=== PATIENT | male | born 1970 | race Caucasian/White ===

== ENCOUNTER 2019-12-07 12:47 | Emergency (ER) | payer BC, SELFPAY ==
[2019-12-07 12:50] VITALS: BP 119/79; PULSE 117; RESP 16; TEMP 38.1; O2SAT 97
--- NOTE | 2019-12-07 13:10 | ED.URI ---
HPI - URI/Sore Throat General Chief Complaint: Upper Respiratory Infection Stated Complaint: cough fever Time Seen by Provider: 12/07/19 13:00 Source: patient, family and RN notes reviewed Mode of arrival: ambulatory Limitations: no limitations History of Present Illness HPI Narrative: 49-year-old male accompanied by presents to express care with complaints of cough, fever, body aches, and headache starting last p.m. He states he has coughed so hard that he has vomited. He states that he does have some nasal drainage that is clear and yellow tinged, denies any sore throat or any ear pain. Patient states that he did not take a flu shot this year. Patient states that he has taken Mucinex and Nyquil for his symptoms. MD elicited complaint: fever and cough Pertinent past history: other (tobacco abuse) Onset (ago): day(s) (1) Consistency: progressively worsening Severity: moderate Pain scale (0-10): 8 Description of mucous: yellow Able to tolerate fluids by mouth: Yes Exacerbating factors: exertion and deep breaths Relieving factors: nothing Associated symptoms: fever, chills, myalgias, headache, rhinorrhea, nasal congestion and cough Treatments prior to arrival: other (Mucinex and Nyquil) Related Data Allergies Allergy/AdvReac Type Severity Reaction Status Date / Time No Known Allergies Allergy Verified 12/07/19 13:12 Review of Systems Review of Systems: Narrative: CONSTITUTIONAL:Positive fever, chills, or sweats. EYES: Denies visual changes, redness, or discharge. ENT: Positive rhinorrhea, congestion,no sore throat, or otalgia. CARDIOVASCULAR: positive chest pain with cough,denies palpitations, or edema. RESPIRATORY:Positive cough denies dyspnea. GASTROINTESTINAL: Denies abdominal pain, nausea, vomiting, or diarrhea. GENITOURINARY: Denies dysuria or hematuria. SKIN: Denies rash or itching. MUSCULOSKELETAL: Denies back pain, joint pain,bodyaches NEUROLOGIC: Denies headache, numbness, or weakness. PSYCHIATRIC: Denies anxiety or depression. All systems reviewed & are unremarkable except as noted in HPI and below PMFSH Past Medical History Medical History (Updated 12/11/19 @ 08:53 by Christine Hagen NP) GERD (gastroesophageal reflux disease) Unspecified injury of femoral artery, right leg, sequela Surgical History Surgical History (Updated 12/07/19 @ 13:56 by Christine Hagen NP) Hx of appendectomy Hx of cholecystectomy Social History Social History (Updated 12/07/19 @ 13:55 by Christine Hagen NP) Smoking packs per day: 1 Smoking cigarettes per day: 20.0 Years smoked: 20 Smoking pack-years: 20.00 Smoking status: Current every day smoker Living arrangements: with family Additional occupation/education comments: [email or web address] Gender identity (if verbalized by the patient): Male Comments At time of signature, agree with nursing past medical, social history. There is no relevant family history pertinent to the presenting complaint Exam Const: General: cooperative, alert, awake, Physically active and ill appearing Nutritional Appearance: average body habitus Orientation/consciousness: oriented to person, oriented to place and oriented to time Limitations: no limitations HENMT: Head: normal to inspection, atraumatic and other (headache stated) Ears: hearing grossly normal bilaterally, external ears normal and TM's normal bilaterally General nose exam: Normal external nose present, Abnormal mucous membranes and turbinates present erythematous and Nasal discharge present Face and sinus: sinuses nontender, erythema and edema Mouth: Yes Normal oral and palatal mucosa present, Yes lip normal and Yes tongue normal Teeth and gingiva: dentition normal Throat: uvula midline and postnasal drainage Eyes: General: appearance normal, both eyes and all related structures Visual Apple: normal visual apple by confrontation Alignment and Position: alignment normal Eyelids: eyelids normal Conjunctiv
== END 2019-12-07 13:29 | disposition home or self-care (01) ==
PROVIDERS: Emergency Provider Registered Nurse
DX: J10.1 Influenza due to other identified influenza virus with other respiratory manifestations (principal); F17.210 Nicotine dependence, cigarettes, uncomplicated; K21.9 Gastro-esophageal reflux disease without esophagitis
CPT/HCPCS: 87804; 99213; G0463

== ENCOUNTER 2021-06-21 10:41 | Emergency (ER) | payer BC, SELFPAY ==
[2021-06-21 10:48] VITALS: BP 134/94; PULSE 88; RESP 18; TEMP 36.4; O2SAT 100
[2021-06-21 12:00] LABS: Alanine Aminotransferase 29 U/L (4-50); Albumin Level 4.4 g/dL (3.5-5.1); Alkaline Phosphatase 101 U/L (38-126); Anion Gap 8 mmol/L (8-16); Aspartate Amino Transferase 28 U/L (17-59); Bilirubin,Total 1.3 mg/dL (0.2-1.3); Blood Urea Nitrogen 9 mg/dL (9-20); Carbon Dioxide 27 mmol/L (22-30); Chloride 104 mmol/L (98-107); Estimated CRCL calculation 82 ml/min; Estimated Glomerular Filt Rate > 60; Glucose 93 mg/dL (65-110); Lipase 18 U/L (23-300); Potassium 3.5 mmol/L (3.4-5.0); Sodium 139 mmol/L (137-145)
[2021-06-21] MEDS: LACTATED RINGERS 1,000 ML 999 ML IV CONT (12:10)
[2021-06-21] MEDS: DICYCLOMINE HCL INJ 20 MG/2 ML VIAL IM (12:10)
--- NOTE | 2021-06-21 12:20 | ED.NAVMDI ---
HPI - Nausea/Vomiting/Diarrhea General Chief complaint: Abdominal Pain Stated complaint: stomach problems Time Seen by Provider: 06/21/21 11:01 Source: patient and RN notes reviewed Mode of arrival: ambulatory Limitations: no limitations History of Present Illness HPI Narrative: This is 50 year old male who presents for evaluation of diarrhea. Patient states he developed watery nonbloody diarrhea 12 days when he was in [place]. He denies associated fever or vomiting. He reports multiple episodes of diarrhea, and it is exacerbated by eating. He also reports abdominal cramping when he eats. He was evaluated at [facility] 3 days ago for his symptoms. He had labs and CT abdomen and pelvis that were performed. His labs were normal and CT showed enteritis according to ER note from his visit. He states he came to this ER because he is still having diarrhea and his family was worried about covid. Related Data Allergies Allergy/AdvReac Type Severity Reaction Status Date / Time No Known Allergies Allergy Verified 06/21/21 10:58 Review of Systems Review of Systems: All systems reviewed & are unremarkable except as noted in HPI and below PMFSH Past Medical History Medical History GERD (gastroesophageal reflux disease) Unspecified injury of femoral artery, right leg, sequela Surgical History Surgical History Hx of appendectomy Hx of cholecystectomy Social History Social History (Updated 12/07/19 @ 13:55 by Christine Hagen NP) Smoking packs per day: 1 Smoking cigarettes per day: 20.0 Years smoked: 20 Smoking pack-years: 20.00 Smoking status: Current every day smoker Additional occupation/education comments: [employer] Gender identity (if verbalized by the patient): Male Exam Const: General: no acute distress and alert Orientation/consciousness: patient oriented x3 Eyes: EOM: EOMs intact bilaterally Chest: Chest palpation & inspection: normal inspection of the chest Resp: Effort & Inspection: normal respiratory effort and no retractions Auscultation: clear to auscultation bilaterally Cardio: Rate: regular rate Rhythm: regular rhythm Heart sounds: no murmurs GI: GI Palp: Yes Soft to palpation, Yes Tenderness to palpation present (GI) (Diffuse) and No Guarding due to palpation present (GI) Auscultation: normal bowel sounds Skin: General skin exam: normal color Rashes: no rashes Neuro: General: patient oriented x3, moves all extremities and CN's II-XI intact bilaterally Psych: Mental Status: mental status grossly normal Affect: normal affect Course Reevaluation(s) Reevaluation #1: Patient denies any pain. I discussed labs are normal. HE was given IVF. I reviewed that since he has no fever , leukocytosis, bloody stools no antibiotics. THis is likely viral. We discussed covid testing and he declines at this time Date: 06/21/21 Time: 14:02 Vital Signs Vital signs: Vital Signs Temperature 97.6 F 06/21/21 10:48 Pulse Rate 88 06/21/21 10:48 Respiratory Rate 18 06/21/21 10:48 Blood Pressure 134/94 H 06/21/21 10:48 Pulse Oximetry 100 06/21/21 10:48 Temperature 97.6 F 06/21/21 10:48 Pulse Rate 88 06/21/21 14:18 Respiratory Rate 17 06/21/21 14:18 Blood Pressure 141/88 H 06/21/21 14:18 Pulse Oximetry 98 06/21/21 14:18 MDM - Nausea/Vomiting/Diarrhea Lab Data Attestation: I reviewed the patient's lab results. Result diagrams: 06/21/21 11:25 06/21/21 11:25 Labs: Lab Results 06/21/21 06/21/21 06/21/21 Range/Units 11:25 11:25 12:00 WBC 7.4 (4.5-10.0) K/mm3 RBC 4.77 (4.6-6.20) M/mm3 Hgb 15.6 (14.0-18.0) g/dL Hct 44.8 (42.0-52.0) % MCV 93.9 (80-100) fl MCH 32.7 (26-34) pg MCHC 34.8 (32-36) g/dl RDW 13.2 (11.5-14.5) % Plt Count 264 (150-375) k/mm3 M
[2021-06-21 12:49] LABS: Add Urine Microscopic? YES; Appearance Urine Clear (Clear); Bilirubin Urine 1+ (Negative); Blood Urine 1+ (Negative); Color Urine Amber (Yellow); Glucose Urine UA Negative (Negative); Ketones Urine Negative (Negative); Leukocyte Esterase Ur Negative LEU/UL (Negative); Mucus Urine Moderate /lpf; Nitrate Urine Negative (Negative); Protein Urine 1+ mg/dL (Negative); Specific Grav Ur 1.029 (1.001-1.035); Squamous Epithelial Cell Urine Rare /hpf (Few); Urobilinogen Urine Negative mg/dL (<2.0); WBC Urine 0-3 /hpf
[2021-06-21 13:02] VITALS: BP 119/72; PULSE 73
[2021-06-21 13:04] VITALS: BP 117/86; PULSE 89
[2021-06-21 13:06] VITALS: BP 117/94; PULSE 100
[2021-06-21 13:46] LABS: Basophils Absolute Auto 0.1 K/mm3 (0.0-0.1); Basophils Percent Auto 0.7 % (0.2-1.2); Eosinophils Absolute Auto 0.2 K/mm3 (0-0.3); Eosinophils Percent Auto 2.7 % (0-4.4); Hematocrit 44.8 % (42.0-52.0); Hemoglobin 15.6 g/dL (14.0-18.0); Immature Granulocyte Absolute 0.03 K/mm3 (0.00-0.031); Immature Granulocyte Percent A 0.4 % (0-0.5); Lymphocytes Absolute Auto 1.14 K/mm3 (0.9-3.2); Lymphocytes Percent Auto 15.4 % (18.3-44.2); Mean Corpuscular HGB Conc 34.8 g/dl (32-36); Mean Corpuscular Hemoglobin 32.7 pg (26-34); Mean Corpuscular Volume 93.9 fl (80-100); Mean Platelet Volume 9.6 fl (7.4-10.4); Monocytes Absolute Auto 0.6 K/mm3 (0.1-0.6); Monocytes Percent Auto 8.1 % (2.6-8.5); Neutrophils Absolute Auto 5.4 K/mm3 (1.3-6.7); Neutrophils Percent Auto 72.7 % (45.5-73.1); Platelet Count Result 264 k/mm3 (150-375); Red Blood Count 4.77 M/mm3 (4.6-6.20); Red Cell Distribution Width 13.2 % (11.5-14.5); White Blood Count 7.4 K/mm3 (4.5-10.0)
[2021-06-21 14:18] VITALS: BP 141/88; PULSE 88; RESP 17; O2SAT 98
== END 2021-06-21 14:18 | disposition home or self-care (01) ==
PROVIDERS: Emergency Provider General Practice
DX: R19.7 Diarrhea, unspecified (principal); K21.9 Gastro-esophageal reflux disease without esophagitis; F17.210 Nicotine dependence, cigarettes, uncomplicated
CPT/HCPCS: 36415; 80053; 81001; 83690; 85025; 96372; 99283; J0500; J7120

== ENCOUNTER 2021-06-23 14:46 | Outpatient (CLI) | payer BC, SELFPAY ==
[2021-06-23 20:48] LABS: Erythrocyte Sedimentation Rate 7 mm/hr (0-20)
[2021-06-23 21:05] LABS: CRP 1.4 mg/dL (<1.0)
[2021-06-29 13:25] LABS: Tissue Transglutaminase IgA Ab 1 U/mL (<4)
[2021-06-29 22:02] LABS: Calprotectin, Stool 439 mcg/g
== END 2021-06-23 14:47 | disposition home or self-care (01) ==
PROVIDERS: PCP Family Medicine; Visit Provider Family Medicine
DX: K52.9 Noninfective gastroenteritis and colitis, unspecified (principal)
CPT/HCPCS: 36415; 83516; 83993; 84443; 85652; 86140; 87015; 87269; 87272; 89055

== ENCOUNTER 2021-06-24 14:04 | Observation (INO) | payer BC, SELFPAY ==
--- NOTE | ~2021-06-24 | CT_ITS ---
EXAMINATION: CT abdomen pelvis w con DATE: 06/24/2021 19:55 INDICATION: Abdominal pain and diarrhea. TECHNIQUE: Computed tomography (CT) of the abdomen and pelvis was performed with 100 mL Omnipaque 350 intravenous contrast. Automated exposure control and iterative reconstruction technique were employe d. The dose-length product was 646.41 mGy-cm. COMPARISON: None. FINDINGS: The visualized portions of the lung bases are clear without pneumonia or pleural effusion. The heart size is normal. No pericardial effusion. There are cysts in the liver measuring up to 3.6 c m. There are changes of cholecystectomy. Calcifications in the spleen are consistent with old granulo matous disease. The pancreas and adrenal glands are normal. There are cysts in the kidneys measuring up to 5.7 cm on the right. There is liquid stool in the colon correlating with the symptom of diarrhe a. The appendix is not visualized. There are no dilated loops of bowel. There are no pathologically e nlarged lymph nodes. There is no free intraperitoneal fluid. There is mild thoracolumbar spondylosis. IMPRESSION: 1. No etiology for the patient's symptoms. Reviewed, dictated and finalized at location A.
[2021-06-24 14:31] VITALS: BP 144/87; PULSE 99; RESP 18; TEMP 36.8; O2SAT 99
[2021-06-24 15:02] LABS: Basophils Absolute Auto 0.1 K/mm3 (0.0-0.1); Basophils Percent Auto 0.6 % (0.2-1.2); Eosinophils Absolute Auto 0.2 K/mm3 (0-0.3); Eosinophils Percent Auto 2.1 % (0-4.4); Hematocrit 46.8 % (42.0-52.0); Hemoglobin 16.6 g/dL (14.0-18.0); Immature Granulocyte Absolute 0.04 K/mm3 (0.00-0.031); Immature Granulocyte Percent A 0.4 % (0-0.5); Lymphocytes Absolute Auto 1.58 K/mm3 (0.9-3.2); Lymphocytes Percent Auto 14.3 % (18.3-44.2); Mean Corpuscular HGB Conc 35.5 g/dl (32-36); Mean Corpuscular Hemoglobin 31.9 pg (26-34); Mean Platelet Volume 9.1 fl (7.4-10.4); Monocytes Absolute Auto 0.8 K/mm3 (0.1-0.6); Monocytes Percent Auto 7.3 % (2.6-8.5); Neutrophils Absolute Auto 8.3 K/mm3 (1.3-6.7); Neutrophils Percent Auto 75.3 % (45.5-73.1); Platelet Count Result 345 k/mm3 (150-375); Red Cell Distribution Width 12.9 % (11.5-14.5)
[2021-06-24 15:22] LABS: Alanine Aminotransferase 24 U/L (4-50); Albumin Level 4.7 g/dL (3.5-5.1); Alkaline Phosphatase 108 U/L (38-126); Anion Gap 12 mmol/L (8-16); Aspartate Amino Transferase 28 U/L (17-59); Bilirubin,Total 1.5 mg/dL (0.2-1.3); Blood Urea Nitrogen 13 mg/dL (9-20); Calcium 9.3 mg/dL (8.4-10.2); Carbon Dioxide 24 mmol/L (22-30); Chloride 97 mmol/L (98-107); Estimated CRCL calculation 76 ml/min; Estimated Glomerular Filt Rate > 60; Glucose 92 mg/dL (65-110); Lipase 16 U/L (23-300); Potassium 3.6 mmol/L (3.4-5.0); Sodium 133 mmol/L (137-145)
[2021-06-24 17:14] VITALS: BP 113/80; PULSE 103; TEMP 36.2; O2SAT 98
[2021-06-24 19:17] VITALS: BP 129/87; PULSE 98; RESP 18; O2SAT 99
--- NOTE | 2021-06-24 19:29 | ED.GENADULT ---
HPI - General Adult General Chief complaint: Abdominal Pain Stated complaint: diarrhea Time Seen by Provider: 06/24/21 19:15 Source: patient History of Present Illness HPI narrative: Patient is a 50 y/o male complaining generalized abdominal pain for 2 weeks. His pain is worse in lower abdomen. He describes his pain as cramping and rates it as 8-10/10. There is no alleviating or exacerbating factor. He has been having diarrhea, but no vomiting. He was evaluated here and at OSH recently for this. He states that he was seen by Dr. Fritz today who directed him to come to ED for IV hydration and admission. Related Data Home Medications Medication Instructions Recorded Confirmed diphenoxylate-atropine tablet 06/24/21 Allergies Allergy/AdvReac Type Severity Reaction Status Date / Time No Known Allergies Allergy Verified 06/24/21 19:23 Review of Systems Constitutional: Constitutional: Denies chills, Denies fever(s), Denies headache(s) and Denies weakness Eyes: Eyes: Denies blurry vision ENT: Denies headache(s) and Denies neck pain Cardiovascular: Cardiovascular: Denies chest pain and Denies dyspnea Respiratory: Respiratory: Denies cough and Denies dyspnea Gastrointestinal: Gastrointestinal: Reports abdominal pain, Reports diarrhea, Denies nausea and Denies vomiting Genitourinary: Genitourinary: Denies hematuria and Denies dysuria Musculoskeletal: Musculoskeletal: Denies back pain and Denies neck pain Neurologic: Denies headache(s) and Denies weakness PMFSH Past Medical History Medical History GERD (gastroesophageal reflux disease) Unspecified injury of femoral artery, right leg, sequela Surgical History Surgical History Hx of appendectomy Hx of cholecystectomy Social History Social History Smoking packs per day: 1 Smoking cigarettes per day: 20.0 Years smoked: 20 Smoking pack-years: 20.00 Smoking status: Current every day smoker Additional occupation/education comments: [employer] Gender identity (if verbalized by the patient): Male Exam Const: General: no acute distress and well developed Orientation/consciousness: oriented to person, oriented to place, oriented to time and patient oriented x3 HENMT: Head: normocephalic Ears: external ears normal General nose exam: Normal external nose present Eyes: General: appearance normal, both eyes and all related structures Conjunctivae: conjunctivae normal Neck: Neck: normal visual inspection and full ROM Chest: Chest palpation & inspection: normal inspection of the chest and no tenderness Resp: Effort & Inspection: normal respiratory effort Auscultation: clear to auscultation bilaterally Cardio: Rate: regular rate Rhythm: regular rhythm GI: GI Palp: No abdominal tenderness and Yes Soft to palpation Skin: General skin exam: normal color and turgor normal Neuro: General: oriented to person, oriented to place, oriented to time and patient oriented x3 Cognition (Neuro): normal cognition Extrem: General: normal to inspection, full ROM and no pedal edema Psych: Appearance: grossly normal Mental Status: mental status grossly normal Affect: normal affect Course Consultations Consultation #1: Discussed with Dr. Fritz, who recommends admission for observation and he will consult. He also recommends COVID test and no need for repeat CT. However, it appears that CT is already done. Date: 06/24/21 Time: 19:35 Consultation #2: Discussed with Dr. Ramírez, who agrees to admit. Date: 06/24/21 Time: 19:56 Vital Signs Vital signs: Vital Signs Temperature 36.8 C 06/24/21 14:31 Pulse Rate 99 06/24/21 14:31 Respiratory Rate 18 06/24/21 14:31 Blood Pressure 144/87 H 06/24/21 14:31 Pulse Oximetry 99 06/24/21 14:31 Temperature 36.2 C L 06/24/21 17:14 Pulse Rate
[2021-06-24] MEDS: SODIUM CHLORIDE 0.9% IV 1,000 ML 999 ML IV CONT (19:39)
[2021-06-24 20:45] LABS: EDCOVIDSCREEN Negative (Negative)
[2021-06-24 21:15] VITALS: BP 128/89; PULSE 87; RESP 16; TEMP 36.8; O2SAT 100
[2021-06-24 21:26] VITALS: BMI 26.7
--- NOTE | 2021-06-24 21:30 | ADMGEN ---
This patient, Ko Roberts, was admitted to [facility]. Patient/family oriented to hospital policies and general routines including ID bracelet, bed and alarms, visiting hours, pain management, procedures, bathroom and other care routines, personal items, smoking policy, room service/diet, and visiting hours. Information on how to activate the Rapid Response Team has been discussed. Patient/Family are encouraged to report perceived risks to care and to ask questions if they do not understand what they are told or what they should do.
[2021-06-25] VITALS (7 sets, daily range): BP systolic 95–122; BP diastolic 58–81; PULSE 63–79; RESP 12–26; TEMP 36.4–36.8; O2SAT 95–100; BMI 26.7
--- NOTE | 2021-06-25 00:07 | PM.IMHP ---
H&P: HPI History of Present Illness Date/Time: 06/25/21 00:07 Chief Complaint: Diarrhea Narrative: This is a 50-year-old male with past medical history significant for tobacco use, tobacco chewing. Patient came to the emergency room due to diarrhea now for roughly 2-3 weeks weight loss of 10-15 lb had a trip to [facility] that 2-3 weeks ago and has had diarrhea ever since unable to eat as everything goes through him he was in the emergency department 2 days ago he was given some medication and discharged home but returned today due to intractable diarrhea he has had roughly 7 bowel movements daily of profuse watery diarrhea some abdominal discomfort, no nausea no vomiting, no phlegm no blood in the diarrhea, no fevers no rigors no chills, no cough no sputum production no shortness of breath. CT of abdomen and pelvis has been unrevealing. Patient has been placed in observation. Review of Systems Review of Systems: Watery diarrhea for 2-3 weeks weight loss of roughly 10-15 lb Constitutional: Constitutional: Denies chills, Denies fatigue, Denies fever(s), Denies malaise, Reports poor appetite, Denies weakness and Reports weight loss Eyes: Eyes: Denies change in vision ENT: Denies dysphagia, Denies nasal congestion, Denies nasal discharge, Denies nasal obstruction and Denies odynophagia Cardiovascular: Cardiovascular: Denies chest pain, Denies lightheadedness and Denies palpitations Respiratory: Respiratory: Denies chest congestion, Denies dyspnea and Denies wheezing Gastrointestinal: Gastrointestinal: Denies dyspepsia, Denies heartburn, Reports diarrhea, Denies nausea and Denies vomiting Genitourinary: Genitourinary: Reports no additional male genitourinary complaints Musculoskeletal: Musculoskeletal: Reports no additional musculoskeletal complaints Integumentary/Breasts: Skin/Breast: Reports system reviewed and no additional complaints, except as docu Neurologic: Reports system reviewed and no additional complaints, except as documented Psychiatric: Psychiatric: Reports no additional psychiatric complaints Endocrine: Endocrine: Reports no additional endocrine complaints Hematologic/Lymphatic: Hematologic/Lymphatic: Reports no additional hematologic/lymphatic complaints Allergic/Immunologic: Allergic/Immunologic: Reports no additional allergic/immunologic complaints PMFSH Past Medical History Medical History GERD (gastroesophageal reflux disease) Unspecified injury of femoral artery, right leg, sequela Surgical History Surgical History Hx of appendectomy Hx of cholecystectomy Family History Family History (Updated 06/24/21 @ 21:46 by Candice Orellana RN) Father FH: brain aneurysm Social History Social History Smoking packs per day: 1.5 Smoking cigarettes per day: 30.0 Years smoked: 20 Smoking pack-years: 30.00 Smoking status: Current every day smoker Tobacco type: cigarettes and smokeless tobacco Second hand tobacco smoke exposure: No Alcohol intake: current Drinks per week: 4 Substance use: never Substance use type: does not use Additional occupation/education comments: [employer] Gender identity (if verbalized by the patient): Male Spiritual care concerns: No Meds Home Medications and Allergies Home Medications Medication Instructions Recorded Confirmed Type diphenoxylate-atropine 1 tablet PO TID PRN 06/24/21 06/24/21 History omeprazole 20 mg PO DAILY PRN 06/24/21 06/24/21 History Allergies Allergy/AdvReac Type Severity Reaction Status Date / Time No Known Allergies Allergy Verified 06/24/21 21:42 Vital Signs Vital Signs - 24 hr 06/24/21 14:31 06/24/21 17:14 06/24/21 19:17 Temperature 98.2 F 97.2 F L Pulse Rate 99 103 H 98 Respiratory Rate 18 18 Blood Pressure 144/87 H 113/80 129/87 Pulse
[2021-06-25] MEDS: metroNIDAZOLE 500 MG/ISO 100ML 500 MG/100 ML BAG 100 MG IVPB ×3 (00:47→14:04)
[2021-06-25 06:56] LABS: Anion Gap 10 mmol/L (8-16); Blood Urea Nitrogen 12 mg/dL (9-20); Calcium 8.4 mg/dL (8.4-10.2); Carbon Dioxide 21 mmol/L (22-30); Chloride 101 mmol/L (98-107); Estimated CRCL calculation 111 ml/min; Estimated Glomerular Filt Rate > 60; Glucose 85 mg/dL (65-110); Potassium 3.2 mmol/L (3.4-5.0); Sodium 132 mmol/L (137-145)
--- NOTE | 2021-06-25 07:17 | WPDGICN ---
Assessment and Plan Assessment and plan (1) Acute diarrhea: Code(s): R19.7 - Diarrhea, unspecified Status: Acute Assessment and Plan: stool studies from [place] were all negative. Those that were done here are still pending. Because of persistent symptoms I will schedule him for EGD and colonoscopy to be done later today. He was found have some mild thickening of the small intestines on CT done in [place] (2) Dehydration symptoms: Code(s): R63.8 - Other symptoms and signs concerning food and fluid intake Status: Acute Assessment and Plan: when I saw him yesterday he was feeling weak and tired and attributed it to not having had anything to eat or drink for several days. He states he feels better today after having IV fluids GI Consult Note Consult date/time: 06/25/21 07:17 HPI: Ko Roberts is a 50 year old male who was in [place] on vacation when he developed diarrhea. That was followed by nausea and decrease in appetite. He did not have a fever although at times he felt sweaty. There was no vomiting. He stated that he had most of his diarrhea in the morning and evening. He was not exposed to any unusual water, in other words he did not o near [place]. He has not been on antibiotics. Eyes return here a week ago he went out to dinner and that was the last time he felt like eating. He has had virtually no food since then. Even popsicles do not agree with him. He is finding it difficult to even drink because it it makes him feel bad. He was in the emergency room in [facility] several days ago. Stool cultures were done that were all negative, and CBC was unremarkable. His CT scan showed possible slight thickening of part of the small bowel. Because the symptoms were worse he went to our emergency room at [facility] on June 21. Apparently COVID testing was brought up but he was talked out of it or talk himself out of it when a nurse practitioner told him that it was probably too late, test would not be positive any more and that he has already exposed his family and grandchildren to the virus if he did have it. He therefore went home. A urinalysis shows specific gravity was 1.029. Creatinine was normal. More stool studies were obtained and are pending. after seen him in the office I directed him to go to emergency room for fear of imminent dehydration and because I was concerned that he may have COVID causing these symptoms. He was found have higher creatinine this time, 1.2. He continues to have loose watery greenish stools that look to him like sack sewer water are quite foul smelling. He has had no appetite. Review of Systems Review of Systems: All systems reviewed & are unremarkable except as noted in HPI and below PMFSH Past Medical History Medical History GERD (gastroesophageal reflux disease) Unspecified injury of femoral artery, right leg, sequela Surgical History Surgical History Hx of appendectomy Hx of cholecystectomy Family History Family History Father FH: brain aneurysm Social History Social History Smoking packs per day: 1.5 Smoking cigarettes per day: 30.0 Years smoked: 20 Smoking pack-years: 30.00 Smoking status: Current every day smoker Tobacco type: cigarettes and smokeless tobacco Second hand tobacco smoke exposure: No Alcohol intake: current Drinks per week: 4 Substance use: never Substance use type: does not use Additional occupation/education comments: [employer] Gender identity (if verbalized by the patient): Male Spiritual care concerns: No Meds Home Medications and Allergies Home Medications Medication Instructions Recorded Confirmed Type diphenoxylate-atropine 1 tablet PO TID PRN 05/27
[2021-06-25] MEDS: POTASSIUM CHLORIDE 20 MEQ TABLET PO (08:38)
[2021-06-25] MEDS: MAGNESIUM CITRATE 300 ML BTL PO (08:39)
--- NOTE | 2021-06-25 10:30 | PC.NURSE ---
Pt to GI lab per wheelchair.
[2021-06-25] MEDS: LACTATED RINGERS 1,000 ML 150 ML IV CONT (10:45)
--- NOTE | 2021-06-25 10:55 | WPDANESEPPF ---
Anes - Initial Pre Proc Eval Procedure: Operation Date: 06/25/21 12:15 Proposed Procedures p Esophagogastroduodenoscopy & Colonoscopy - Kwaku Fritz MD Date/Time: 06/25/21 10:55 Surgeon: Sundeep Ramírez MD Pre Op Diagnosis: Gastroenteritis, Dehydration Patient Data Age: 50 Gender: M Height: 1.88 m Weight: 94.5 kg Last Vital Signs Temp 97.5 F L 06/25/21 10:43 Pulse 72 06/25/21 10:43 Resp 16 06/25/21 10:43 BP 120/81 06/25/21 10:43 Pulse Ox 100 06/25/21 10:43 Allergies Allergy/AdvReac Type Severity Reaction Status Date / Time No Known Allergies Allergy Verified 06/25/21 10:41 Home Medications Medication Instructions Recorded Confirmed Type diphenoxylate-atropine 1 tablet PO TID PRN 06/24/21 06/24/21 History omeprazole 20 mg PO DAILY PRN 06/24/21 06/24/21 History Laboratory Tests 06/24/21 06/24/21 06/24/21 14:49 14:49 20:20 WBC 11.0 K/mm3 H K/mm3 (4.5-10.0) RBC 5.20 M/mm3 M/mm3 (4.6-6.20) Hgb 16.6 g/dL g/dL (14.0-18.0) Hct 46.8 % % (42.0-52.0) MCV 90.0 fl fl (80-100) MCH 31.9 pg pg (26-34) MCHC 35.5 g/dl g/dl (32-36) RDW 12.9 % % (11.5-14.5) Plt Count 345 k/mm3 k/mm3 (150-375) MPV 9.1 fl fl (7.4-10.4) Immature Gran % (Auto) 0.4 % % (0-0.5) Neut % (Auto) 75.3 % H % (45.5-73.1) Lymph % (Auto) 14.3 % L % (18.3-44.2) Cascade % (Auto) 7.3 % % (2.6-8.5) Eos % (Auto) 2.1 % % (0-4.4) Baso % (Auto) 0.6 % % (0.2-1.2) Lymph # (Auto) 1.58 K/mm3 K/mm3 (0.9-3.2) Cascade # (Auto) 0.8 K/mm3 H K/mm3 (0.1-0.6) Eos # (Auto) 0.2 K/mm3 K/mm3 (0-0.3) Baso # (Auto) 0.1 K/mm3 K/mm3 (0.0-0.1) Abs Immat Gran (auto) 0.04 K/mm3 H K/mm3 (0.00-0.031) Absolute Neuts (auto) 8.3 K/mm3 H K/mm3 (1.3-6.7) Absolute Nucleated RBC 0.0 K/mm3 K/mm3 (0.0-0.012) Nucleated RBC % 0.0 % % (0.0-0.2) Sodium 133 mmol/L L mmol/L (137-145) Potassium 3.6 mmol/L mmol/L (3.4-5.0) Chloride 97 mmol/L L mmol/L (98-107) Carbon Dioxide 24 mmol/L mmol/L (22-30) Anion Gap 12 mmol/L mmol/L (8-16) BUN 13 mg/dL mg/dL (9-20) Creatinine 1.20 mg/dL mg/dL (0.7-1.3) Estim Creat Clear Calc 76 ml/min ml/min Estimated GFR > 60 (59 - ) Glucose 92 mg/dL mg/dL (65-110) Calcium 9.3 mg/dL mg/dL (8.4-10.2) Total Bilirubin 1.5 mg/dL H mg/dL (0.2-1.3) AST 28 U/L U/L (17-59) ALT 24 U/L U/L (4-50) Alkaline Phosphatase 108 U/L U/L (38-126) Total Protein 8.0 g/dL g/dL (6.3-8.2) Albumin 4.7 g/dL g/dL (3.5-5.1) Lipase 16 U/L L U/L (23-300) SARS-CoV-2 IgG/IgM Ag?Rapid Negative (Negative) Ova & Parasites 06/25/21 06/25/21 02:05 06:16 WBC RBC Hgb Hct MCV MCH MCHC RDW Plt Count MPV Immature Gran % (Auto) Neut % (Auto) Lymph % (Auto) Cascade % (Auto) Eos % (Auto) Baso % (Auto) Lymph # (Auto) Cascade # (Auto) Eos # (Auto) Baso # (Auto) Abs Immat Gran (auto) Absolute Neuts (auto) Absolute Nucleated RBC Nucleated RBC % Sodium 132 mmol/L L mmol/L (137-145) Potassium 3.2 mmol/L L mmol/L (3.4-5.0) Chloride 101 mmol/L mmol/L (98-107) Carbon Dioxide 21 mmol/L L mmol/L (22-30) Anion Gap 10 mmol/L mmol/L (8-16) BUN 12 mg/dL mg/dL (9-20) Creatinine 0.80 mg/dL mg/dL (0.7-1.3) Estim Creat Clear Calc 111 ml/min ml/min Estimated GFR > 60 (59 - ) Glucose 85 mg/
[2021-06-25] MEDS: ENOXAPARIN 40 MG/0.4 ML SYRINGE SUB-Q (14:04)
--- NOTE | 2021-06-25 16:22 | PM.DS ---
DS: Admitting Diagnosis Admitting Diagnosis Diarrhea DS: Discharge Diagnosis Discharge Diagnosis (1) Acute diarrhea: Code(s): R19.7 - Diarrhea, unspecified Status: Acute (2) Dehydration: Code(s): E86.0 - Dehydration Status: Acute (3) Chewing tobacco nicotine dependence, uncomplicated: Code(s): F17.220 - Nicotine dependence, chewing tobacco, uncomplicated Status: Acute (4) Tobacco dependence due to cigarettes: Code(s): F17.210 - Nicotine dependence, cigarettes, uncomplicated Status: Acute DS: Summary Hospital Course Reason for hospitalization: 50yo male here for diarrhea. Please see H&P for details. Hospital Course: Patient presents to ED due to diarrhea now for roughly 2-3 weeks with weight loss of 10-15# after a trip to [place]. No exposure to brackish water. He has been to multiple hospitals for evaluation. CT scan in [place] showed enteritis prior to admission. On admission, patient was hemodynamically stable. White count slightly elevated 11,000. Sodium low 133. CRP was 1.4 with a normal TSH drawn 1 day prior to admission. CT scan of the abdomen pelvis showed liquid stool in the colon but no acute findings. Patient underwent colonoscopy which showed no acute findings. Biopsies were taken. EGD showed nonerosive reflux disease. Patient was started on Levaquin and Flagyl. He states his symptoms improved with this treatment. Was able to eat and tolerate it. Stool study collected on June 23 has returned positive for Giardia. Plan for treatment with Flagyl. Patient was educated about the benefits of abstain from tobacco use. He was advised of the side effects of metronidazole including headache, GI disturbance, metallic taste and reaction with alcohol use. He was advised to avoid alcohol use while on metronidazole. He voices understanding this. Patient did well was able to discharge home on 06/25/2021. Status at Discharge Cognitive/behavioral status at discharge: stable Time Spent with Patient Time attestation: Total time spent providing and/or coordinating discharge services: 35 minutes Time spent: Greater than 30 minutes Specific discharge activities: Patient Education Exam Narrative: AF 97.5 119/77 63 14 100% ra Gen - NARD Chest - CTA bilaterally, nml RR CV - RRR S1/S2 Abd - Soft, NT/ND, Positive BS Ext - No pedal edema Neuro - Alert and oriented. Nonfocal exam. Psych - Nml mood and affect Skin - Warm and dry DS: Data Data Completed and Pending Pending studies at discharge: Pending at discharge 06/25/21 13:13 Surgical [PTH] Routine Surgical [PTH] Routine Labs on day of discharge: Labs from last 24 hours 06/25/21 06/25/21 06/24/21 06:16 02:05 20:20 Sodium 132 L Potassium 3.2 L Chloride 101 Carbon Dioxide 21 L Anion Gap 10 BUN 12 Creatinine 0.80 Estim Creat Clear Calc 111 Estimated GFR > 60 Glucose 85 Calcium 8.4 SARS-CoV-2 IgG/IgM Ag?Rapid Negative Ova & Parasites Pending Discharge Plan Discharge Attending physician on discharge: Mohan Montgomery Consulting providers: Kwaku Fritz Discharging Clinician: Mohan Montgomery Anticipated Discharge Date/Time: 06/25/21 16:52 Patient Disposition: Home, Self-Care Activity: as tolerated Diet: regular Discharge Instructions: Please avoid large gathering, wear face coverings in public and practice social distance. Please complete your antibiotic course even if you are starting to feel well. Contact your doctor or call 911 and come to the Emergency Room if you have worsening diarrhea, rectal bleeding or other worrisome symptoms. Avoid NSAIDs (ibuprofen, naproxen, Aleve). Tylenol is safe to take. Follow-up with Dr Fritz in 1 week. Please call for appointment. Stop all Tobacco product use Patient Instructions: Antibiotic Form, How to Stop Smoking (DC) Stand Alone Forms: General Disch
--- NOTE | 2021-06-25 17:53 | PC.NURSE ---
Pt stated no valuables were locked away.
== END 2021-06-25 17:50 | disposition home or self-care (01) ==
LOC: ANHED 20:55 → ANHCPC 06-25 00:25
PROVIDERS: Emergency Medicine; Internal Medicine Gastroenterology; Admitting Provider Internal Medicine; Emergency Provider Emergency Medicine; PCP Family Medicine; Visit Provider Internal Medicine
PROC: 0DJ08ZZ Inspection of Upper Intestinal Tract, Via Natural or Artificial Opening Endoscopic (ICD-10-PCS; CPT 43235; principal; 2021-06-25 12:15)
DX: A07.1 Giardiasis [lambliasis] (principal); R19.7 Diarrhea, unspecified; K52.89 Other specified noninfective gastroenteritis and colitis; K20.80 Other esophagitis without bleeding; K21.9 Gastro-esophageal reflux disease without esophagitis; E86.0 Dehydration; F17.220 Nicotine dependence, chewing tobacco, uncomplicated; Z20.822 Contact with and (suspected) exposure to COVID-19
CPT/HCPCS: 43239; 45380; 36415; 74177; 80048; 80053; 83690; 85025; 87081; 87177; 87209; 87426; 88305; 89055; 96361; 96365; 96366; 96368; 99285; A9270; C9803; G0378; J1650; J1956; J2704; J7030; J7120; Q9967

== ENCOUNTER 2021-07-14 15:31 | Outpatient (CLI) | payer BC, SELFPAY ==
[2021-07-14 19:54] LABS: Anion Gap 9 mmol/L (8-16); Blood Urea Nitrogen 10 mg/dL (9-20); Calcium 9.1 mg/dL (8.4-10.2); Carbon Dioxide 28 mmol/L (22-30); Chloride 101 mmol/L (98-107); Cholesterol 185 mg/dL (0-200); Estimated Glomerular Filt Rate > 60; Glucose 97 mg/dL (65-110); HDL Direct 41 mg/dL; Potassium 3.8 mmol/L (3.4-5.0); Sodium 138 mmol/L (137-145); Triglycerides 264 mg/dL (<150)
[2021-07-14 20:05] LABS: LDL Cholesterol Direct 99 mg/dL
[2021-07-14 20:18] LABS: Vitamin D 25 Hydroxy 39.5 ng/mL
== END 2021-07-14 15:32 | disposition home or self-care (01) ==
PROVIDERS: PCP Family Medicine; Visit Provider Family Medicine
DX: E87.1 Hypo-osmolality and hyponatremia (principal); E87.6 Hypokalemia; Z00.00 Encounter for general adult medical examination without abnormal findings; K21.9 Gastro-esophageal reflux disease without esophagitis; Z12.5 Encounter for screening for malignant neoplasm of prostate
CPT/HCPCS: 36415; 80048; 80061; 82306; 84153; G0103

== ENCOUNTER 2022-09-08 19:38 | Emergency (ER) | payer BC, SELFPAY ==
--- NOTE | ~2022-09-08 | XR_ITS ---
EXAMINATION: XR finger 5th LT min 2V INDICATION: Right fifth finger pain, initial encounter TECHNIQUE: Three views of the right fifth finger are obtained. COMPARISON: None available FINDINGS: There is soft tissue swelling of the distal finger. Bone alignment is normal. There is no f racture. The joint spaces are unremarkable. IMPRESSION: 1. Left fifth finger swelling without underlying osseous abnormality. Reviewed, dictated and finalized at location F. PRESSER
--- NOTE | 2022-09-08 19:41 | ED.WOUNDLAC ---
HPI - Wound/Laceration General Stated Complaint: Laceration to Finger Time Seen by Provider: 09/08/22 20:03 Source: patient and RN notes reviewed Mode of arrival: ambulatory Limitations: no limitations History of Present Illness HPI narrative: 51-year-old male presents concern for injury to the 5th digit of his left hand. Reports prior to arrival he was using a saw was when he injured his hand. He thinks this also may have smashed his hand. He reports a laceration, bruising, pain in the distal digit. He reports he is up-to-date on his tetanus vaccination Related Data Home Medications Medication Instructions Recorded Confirmed omeprazole 20 mg capsule,delayed 20 mg PO DAILY PRN Acid Reflux 07/10/21 07/21/21 release Allergies Allergy/AdvReac Type Severity Reaction Status Date / Time No Known Allergies Allergy Verified 09/08/22 19:54 Review of Systems Review of Systems: CONSTITUTIONAL: Denies malaise, chills, sweats, or fever. SKIN: Reports laceration to the 5th digit of the left hand MUSCULOSKELETAL: Reports bruising, pain, swelling to the 5th digit of the left hand NEUROLOGIC: Denies numbness, weakness All systems reviewed & are unremarkable except as noted in HPI and below PMFSH Past Medical History Medical History GERD (gastroesophageal reflux disease) Unspecified injury of femoral artery, right leg, sequela Surgical History Surgical History Hx of appendectomy Hx of cholecystectomy Family History Family History Father FH: brain aneurysm Social History Social History Smoking packs per day: 1.5 Smoking cigarettes per day: 30.0 Years smoked: 20 Smoking pack-years: 30.00 Smoking status: Current every day smoker Tobacco type: cigarettes and smokeless tobacco Second hand tobacco smoke exposure: No Alcohol intake: current Drinks per week: 4 Substance use: never Substance use type: does not use Additional occupation/education comments: [employer] Gender identity (if verbalized by the patient): Male Spiritual care concerns: No Comments At time of signature, agree with nursing past medical, surgical, social and family history. There is no relevant family history pertinent to the presenting complaint Exam Narrative: GENERAL: Well-appearing, well-nourished, and in no acute distress. HEAD: Normocephalic EYES: PERRLA, conjunctivae clear NECK: Supple. CHEST: Speaks in full sentences. No respiratory distress. HEART: Regular rate and rhythm. Normal and equal peripheral pulses. EXTREMITIES: 5th digit of the left hand has normal strength and sensation. 5/5 strength with digit flexion, extension. Range of motion grossly normal. No clubbing, cyanosis. Distal digit tenderness, ecchymosis and edema noted. No tenderness. Normal digital cascade with flexion of fingers, median, ulnar and radial nerve intact. Normal sensation of each side of finger. Can perform 'okay' sign, 'cross over finger test of index and middle fingers' and 'thumbs up' sign. No scissoring. Normal thumb opposition. Good capillary refill and radial pulse. Distal capillary refill less than 3 seconds. SKIN: Warn, dry, intact, pink. No rash. Laceration into the subcutaneous tissue noted to the distal 5th left digit lateral NEURO: Alert and oriented x3. PSYCH: Normal mood and affect Course Course Emergency Course: Patient is aware of diagnosis, understands and agrees to treatment plan. Anticipatory guidance given. Patient agrees to follow-up as directed and is aware of reasons to seek care at the emergency department. Portions of this record may have been created with voice recognition software Level of Care: Express Care Visit Vital Signs Vital signs: Reviewed. Procedures Laceration Lace
[2022-09-08 19:44] VITALS: BP 143/90; PULSE 95; RESP 20; TEMP 36.9; O2SAT 99
== END 2022-09-08 21:00 | disposition home or self-care (01) ==
PROVIDERS: Emergency Provider Nurse Practitioner; PCP Family Medicine
DX: S61.217A Laceration without foreign body of left little finger without damage to nail, initial encounter (principal); S60.152A Contusion of left little finger with damage to nail, initial encounter; W27.0XXA Contact with workbench tool, initial encounter; F17.210 Nicotine dependence, cigarettes, uncomplicated; K21.9 Gastro-esophageal reflux disease without esophagitis
CPT/HCPCS: 12001; 11740; 73140; 99213; G0463

== ENCOUNTER → 2023-08-12 08:22 | Outpatient (CLI) | payer BC, SELFPAY ==
--- NOTE | ~2023-08-12 | CT_ITS ---
CT Scan of the Chest without Contrast: Clinical Indication: Lung cancer screening, personal history of nicotine dependence Technique: Contiguous sections were acquired throughout the chest without intravenous contrast. Dose reduction technique was used on this scan by utilizing automated exposure control and iterative recon struction technique. The dose-length product (DLP) was 195.63 mGy-cm. Findings: There is no evidence of any significant mediastinal, hilar or axillary lymphadenopathy. The mediastin al soft tissues appear normal. There is no evidence of pleural or pericardial effusion. The lungs are clear. No pulmonary nodules or infiltrates are noted. Images through the upper abdomen reveal hepatic cysts. Impression: Lung RADS 1: Negative. 12 month follow-up screening CT advised. Reviewed, dictated and finalized at location . Impression: Lung RADS 1: Negative. 12 month follow-up screening CT advised.
== END ==
PROVIDERS: PCP Family Medicine; Visit Provider Family Medicine
DX: Z12.2 Encounter for screening for malignant neoplasm of respiratory organs (principal); F17.210 Nicotine dependence, cigarettes, uncomplicated
CPT/HCPCS: 71271

== ENCOUNTER 2023-11-29 08:30 | Outpatient (CLI) | payer BC, SELFPAY ==
--- NOTE | 2023-11-29 13:40 | WPDPFTINT ---
PFT Procedure Performed PFT Procedure Performed Spirometry with Pre/Post Bronchodilator Plethysmography (Lung Vol) Diffusing Cap (DLCO) Flow Vol Loop PFT Interpretation This is a pulmonary function test with spirometry, plethysmography and diffusing capacity. The test was performed and results interpreted in accordance with the 2019 and 2005 ATS/ERS Task Force guidelines respectively using the Global Lung Function Initiative-2012 reference equations. Patient demonstrated good effort and cooperation. Reproducibility criteria were met. The quality of the spirometry maneuver was Grade A. Findings: Spirometry: There is decreased maximal expiratory airflow at low lung volumes with concave expiratory flow tracing. The contour the inspiratory flow tracing is normal. The pre bronchodilator FVC is 5.08 L, 91% predicted. The pre bronchodilator FEV1 is 3.40 L, 78% predicted. The pre bronchodilator FEV1: FVC ratio 67%. Plethysmography: The total lung capacity is 8.34 L, 107% predicted. The functional residual capacity is 4.36 L, 107% predicted. The residual volume is 2.94 L, 127% predicted. Diffusing capacity: The diffusing capacity unadjusted for hemoglobin and carboxyhemoglobin is 30.8, 97% predicted. The diffusing capacity adjusted for alveolar volume is 4.92, 116% predicted. Impression: There is a mild obstructive abnormality. The lung volumes are normal. The diffusing capacity is normal. There are no prior studies for comparison
== END 2023-11-29 08:31 | disposition home or self-care (01) ==
LOC: ANHPFT 08:31
PROVIDERS: PCP Family Medicine; Visit Provider Family Medicine
DX: R06.02 Shortness of breath (principal); R94.2 Abnormal results of pulmonary function studies
CPT/HCPCS: 94375; 94726; 94729

== ENCOUNTER 2024-08-12 18:20 | Emergency (ER) | payer BC, SELFPAY ==
--- NOTE | ~2024-08-12 | XR_ITS ---
XR foot RT min 3V Ordering provider: Stevan Salazar MD History: . Injury, Dropped hammer on Rt. foot x1 week . Comparison: None. FINDINGS: BONES: Possible fracture at the base of the fourth metatarsal bone. Clinical correlation and evaluati on for tenderness in the area advised. Calcaneal spur. JOINT SPACES: Normal. No tarsal coalition. SOFT TISSUES: Normal. IMPRESSION: Possible fracture at the base of the fourth metatarsal bone. Reviewed, dictated and finalized at location A.
[2024-08-12 18:20] VITALS: BP 140/96; PULSE 87; RESP 18; TEMP 36.6; O2SAT 100
--- NOTE | 2024-08-12 19:21 | ED.GENADULT ---
HPI - General Adult General Chief complaint: Extremity Injury, Lower Stated complaint: foot pain, right History of Present Illness HPI narrative: Patient reports that he dropped a hammer on his foot 1-2 weeks ago. He has been having mid foot pain since that time. Initially had some swelling that has subsequently gone away. He presents today because the pain has persisted and he wonders if he needs an x-ray for further evaluation. Related Data Allergies Allergy/AdvReac Type Severity Reaction Status Date / Time No Known Allergies Allergy Verified 08/12/24 18:27 [facility] Past Medical History Medical History GERD (gastroesophageal reflux disease) Unspecified injury of femoral artery, right leg, sequela Surgical History Surgical History Hx of appendectomy Hx of cholecystectomy Family History Family History Father FH: brain aneurysm Social History Social History (Updated 06/24/23 @ 15:41 by Stefania Mariee MA) Smoking packs per day: 1.5 Smoking cigarettes per day: 30.0 Years smoked: 20 Smoking pack-years: 30.00 Smoking status: Current every day smoker Tobacco type: cigarettes and smokeless tobacco Second hand tobacco smoke exposure: No Alcohol intake: current Drinks per week: 4 Substance use: never Substance use type: does not use Lack of Transportation: No Lack of Food: Never True Current Housing: I Have Housing Concerned About Future Housing: No Difficulty Paying Gas/Electric Bills: No Difficulty Paying for Meds: No Currently Unemployed: No Education: High School Diploma/GED Difficulty w/ Childcare or Family Care: No Living arrangements: with family Additional occupation/education comments: [employer] Gender identity (if verbalized by the patient): Male Spiritual care concerns: No Exam Narrative: Exam shows tenderness over the midfoot. There is no overt swelling or deformity. movement is intact. Distal circulation is intact. x-ray of the right foot shows Possible fracture at the base of the fourth metatarsal bone. Course Vital Signs Vital signs: Vital Signs Temperature 36.6 C 08/12/24 18:20 Pulse Rate 87 08/12/24 18:20 Respiratory Rate 18 08/12/24 18:20 Blood Pressure 140/96 H 08/12/24 18:20 Pulse Oximetry 100 08/12/24 18:20 Oxygen Delivery Room Air 08/12/24 18:20 Temperature 36.6 C 08/12/24 18:20 Pulse Rate 87 08/12/24 18:20 Respiratory Rate 18 08/12/24 18:20 Blood Pressure 140/96 H 08/12/24 18:20 Pulse Oximetry 100 08/12/24 18:20 Oxygen Delivery Room Air 08/12/24 18:20 Medical Decision Making MDM Narrative Medical decision making narrative: Patient was placed in Room #:?6 Independent Historian: non External Source Review: none Differential diagnosis includes but not limited to:? foot fracture Medications were Reviewed: home medicines Independently Interpreted by me: none Medications, treatment, ED course: x-ray shows a fracture of the base of 4th metatarsal of the right foot. Hard sole shoe was applied Social situation impacting patients care: lives independently in the community Shared decision making:? agrees to follow-up with his primary care Accepting physician: none DISCHARGE DIAGNOSIS: 4th metatarsal fracture DISPOSITION: home with self-care CONDITION AT DISCHARGE:? stable Vital Signs Vital Signs: Vital Signs Temperature 36.6 C 08/12/24 18:20 Pulse Rate 87 08/12/24 18:20 Respiratory Rate 18 08/12/24 18:20 Blood Pressure 140/96 H 08/12/24 18:20 Pulse Oximetry 100 08/12/24 18:20 Oxygen Delivery Room Air 08/12/24 18:20 Temperature 36.6 C 08/12/24 18:20 Pulse Rate 87 08/12/24 18:20 Respiratory Rate 18 08/12/24 18:20 Blood Pressure 140/96 H 08/12/24 18:20 Pulse Oximetry
[2024-08-12 19:31] VITALS: BP 145/94; TEMP 36.7
== END 2024-08-12 19:31 | disposition home or self-care (01) ==
PROVIDERS: Emergency Provider Family Medicine; PCP Family Medicine
DX: S92.341A Displaced fracture of fourth metatarsal bone, right foot, initial encounter for closed fracture (principal); F17.210 Nicotine dependence, cigarettes, uncomplicated; W20.8XXA Other cause of strike by thrown, projected or falling object, initial encounter
CPT/HCPCS: 73630; 99284

== ENCOUNTER 2025-06-12 15:29 | Emergency (ER) | payer BC, SELFPAY ==
--- OUTSIDE RECORDS SUMMARY | 2024-12-05 09:00 | XMS_ITS ---
Author Name [facility] (MD) Organization [facility] (MD) Address [address] [facility] [place] [address] Care Team Providers Care Barrel Liner Name Role Phone ASHLEY PRAKASH Primary Care Provider Unavailabl e Insurance Providers: All historical and current Section Date Range: From patient's date of to the date document was created. This section includes the names of all active insurance providers for the patient. Insurance Provider Type of Coverage Plan Name Start of Policy Coverage End of Policy Coverage Group Number Member ID Insurance Provider's Telephone Number Policy Wade's Name Patient's Relationship to Policy Wade [place] PREFERRED PROVIDER [place]O) [employer] [place] Oct 25, [id number] [phone] DENNIS ROBERTS PATIENT [employer] [employer] PREFERRED PROVIDER ORGANIZAT [place]ON (PPO) [employer] [place] Oct 25, [id number] [phone] DENNIS ROBERTS PATIENT [employer] PREFERRED PROVIDER ORGANIZAT ION (PPO) [employer] [place] Oct 25, [id number] [phone] DENNIS ROBERTS PATIENT [place] PREFERRED PROVIDER ORGANIZAT ION (PPO) [employer] [place] Oct 25, [id number] [phone] DENNIS ROBERTS PATIENT [employer] ([employer]) PRESCRIPT ION RX PLAN Oct 25, 2022 [facility] [id number] [phone] DENNIS ROBERTS PATIENT Selected Encounter This section includes the information on record at MD for the Encounter. Date/Time Encounter Type Encounter Description Reason Provider Source Dec 05, 2024 02:00 PM OFFICE O/P EST MOD 30 MIN PRIMARY CARE/MEDICINE ICD-10-CM Z72.0 Tobacco use CATHERINE PRAKASHUREEN [facility] Encounter Template Text not used by MD Assessments - Encounter Diagnoses This section includes the primary and secondary diagnoses documented for the Encounter. Date/Time Primary/Secondary Diagnosis Diagnosis Name Provider Source Dec 05, 2024 02:36 PM PRIMARY Tobacco use [facility] Dec 05, 2024 02:36 PM SECONDARY Generalized anxiety disorder [facility] Dec 05, 2024 02:36 PM SECONDARY Male erectile dysfunction, unspecified [facility] Dec 05, 2024 02:36 PM SECONDARY Other low back pain [facility] Plan of Treatment: Future Appointments (+ 6 months) and Future Tests (+/- 45 days) The Plan of Treatment section includes future care activities for the patient from all MD treatmentfacilities. This section includes future appointments and future orders which are active, pending or scheduled. Future Appointments This section includes appointments that were scheduled to occur 6 months from the date of the Encounter, up to a maximum of 20 appointments. The data comes from all MD treatment facilities. Appointment Date/Time Appointment Type Appointme nt Facility Name Apr 04, 2025 02:30 PM AMBULATORY - MEDICINE [facility] Lab Results: +/- 30 days of the encounter This section includes the Chemistry and Hematology Lab Results on record with MD for the patient. Radiology Reports and Pathology Reports are provided separately, in subsequent sections. Lab Results This section contains the Chemistry/Hematology Results that were resulted 30 days before or 30 daysafter the date of the Encounter. Date/Time Source Result Type Result - Unit Interpretation Reference Range Specimen Type Comment Dec 05, 2024 02:39 PM [facility] URINALYSIS (STL-PB) URINE Specimen Type: URINE No comment entered. Ordering Provider: ASHLEY PRAKASH Report Released Date/Time: Dec 05, 2024 02:26 PM Reporting Lab: [facility] [address] [place] [address] Performing Lab: [facility] [address] [place] [address] URINE COLOR Light-Yellow Yellow U.BILIRUBIN Negative mg/dL Negative U.PH 6.0 5.0-8.0 APPEARANCE Clear Clear U.NITRITE Negative mg/dL Negative URN.GLUCOSE Normal mg/dL Negative URN.PROTEIN Negative mg/dL URN.UROBILINOGEN Normal mg/dL Normal URN.BLOOD Trace mg/dL Negative-Trace URN.KETONES Negative mg/dL Negative-Trac e URN.LEUK.EST. Negative mg/dL Negative-Tr arelis URN.SPECIFIC GRAVITY 1.014 Dec 05, 2024 02:33 PM [facility] COMPREHENSIVE METABOLIC PANEL PLASMA Specimen Type: PLASMA Comment: No hemolysis noted. Ordering Provider: ASHLEY PRAKASH Report Released Date/Time: Dec 05, 2024 02:26 PM Reporting Lab: [facility] [address] [place] [address] Performing Lab: [facility] [address] [place] [address] CREATININE 1.05 mg/dL 0.70-1.30 UREA NITROGEN 12.9 mg/dL 9.0-25.0 GLUCOSE 81 mg/dL 72-99 SODIUM 136 meq/L 136-145 POTASSIUM 3.7 meq/L 3.5-5.0 CHLORIDE 102 meq/L 98-107 CARBON DIOXIDE 27 meq/L 22-31 CALCIUM 9.6 mg/dL 8.4-10.4 PROTEIN 7.5 g/dL 6.0-8.6 ALBUMIN 4.6 g/dL 3.4-5.0 TOTAL BILIRUBIN 1.0 mg/dL 0.2-1.2 ALKALINE PHOSPHATASE 102 U/L 40-150 AST/SGOT 20 U/L 5-34 ALT/SGPT 19 U/L 8-40 EGFR (CKD-EPI 2020) 83.83 >60 Dec 05, 2024 02:33 PM [facility] LIPID PANEL (STL) PLASMA Specimen Type: PLASM A Comment: No hemolysis noted. Ordering Provider: ASHLEY PRAKASH Report Released Date/Time: Dec 05, 2024 02:26 PM Reporting Lab: [facility] [address] [place] [address] Performing Lab: [facility] [address] [place] [address] CHOLESTEROL 183 mg/dL 0-200 TRIGLYCERIDE 169 mg/dL H 0-150 CALCULATED LDL 112 mg/dL See Interp HDL(New) 37 mg/dL L > 40 Dec 05, 2024 02:33 PM [facility] CBC BLOOD Specimen Type: BLOOD No comment entered. Ordering Provider: ASHLEY PRAKASH Report Released Date/Time: Dec 05, 2024 02:26 PM Reporting Lab: [facility] [address] [place] [address] Performing Lab: [facility] [address] [place] [address] WBC 6.0 10*3/uL 3.6-11.2 RBC 4.69 10*6/uL 4.10-5.70 HGB 15.4 g/dL 13.1-16.8 HCT 42.3 38.2-48.4 MCV 90.2 fL 80.0-100.0 MCH 32.8 pg 27.0-34.0 MCHC 36.4 g/dL H 33.0-36.0 PLT 242 10*3/uL 150-400 MPV 8.8 fL 7.5-11.2 RDW 12.4 11.8-15.1 LYMPHOCYTES, AUTO % 22 MONOCYTES, AUTO % 8 NEUTROPHILS, AUTO % 67 EOSINOPHILS, AUTO % 1 BASOPHILS, AUTO % 1 LYMPHOCYTES, ABSOLUTE 1.32 10*3/uL 0.77- 4.50 MONOCYTES, ABSOLUTE 0.48 10*3/uL 0.19-0. 80 NEUTROPHILS, ABSOLUTE 4.04 10*3/uL 2.10- 8.00 EOSINOPHILS, ABSOLUTE 0.08 10*3/uL 0.00- 0.60 BASOPHILS, ABSOLUTE 0.04 10*3/uL 0.00-0. 20 Dec 05, 2024 02:33 PM [facility] PROST. SPECIFIC AG.(PB-STL) SERUM Specimen Ty pe: SERUM Comment: The listed sex of this patient may not be a typical indication for this test. Therefore, reference ranges or interpretive criteria listed may not be valid. Clinical correlation suggested. Ordering Provider: ASHLEY PRAKASH Report Released Date/Time: Dec 05, 2024 02:26 PM Reporting Lab: [facility] [address] [place] [address] Performing Lab: [facility] [address] [place] [address] PROST. SPECIFIC AG.(PB-STL) 0.873 ng/mL 0.000-4.000 Dec 05, 2024 02:33 PM [facility] TSH (MA-PB) SERUM Specimen Type: SERUM Comment: The listed sex of this patient may not be a typical indication for this test. Therefore, reference ranges or interpretive criteria listed may not be valid. Clinical correlation suggested. Ordering Provider: ASHLEY PRAKASH Report Released Date/Time: Dec 05, 2024 02:26 PM Reporting Lab: [facility] [address] [place] [address] Performing Lab: [facility] [address] [place] [address] TSH 1.898 u[IU]/mL 0.470-5.000 Dec 05, 2024 02:33 PM [facility] HGA1C BLOOD Specimen Type: BLOOD No comment entered. Ordering Provider: ASHLEY PRAKASH Report Released Date/Time: Dec 05, 2024 02:26 PM Reporting Lab: [facility] [place] [address] Performing Lab: [facility] [place] [address] HGA1C 5.5 4.0-6.0 Vital Signs: All taken on the encounter date This section contains inpatient and outpatient Vital Signs collected on the date of the Encounter. Date/Time Temperature Pulse Blood Pressure Respiratory Rate SP02 Pain Height Weight Body Mass Index Source Dec 05, 2024 02:00 PM 138/88 [facility] Dec 05, 2024 01:54 PM 98.5 88 148/95 18 99 4 232.1 30 [facility] N Social History: Smoking Status (Most current) and Tobacco Use (All prior to encounter date) This section includes the most current, and the historical, smoking and tobacco- related health factors from the MD facility where the Encounter took place. Current Smoking Status This section includes the most current smoking, or tobacco-related health factor, from the MD facility where the Encounter took place. Date/Time Current Smoking Status Comment Fabiana ity Dec 05, 2024 02:00 PM VA-TOBACCO USE ALONA RY DAY CIGARETTES [facility] Tobacco Use History This section includes a history of the smoking, or tobacco-related health factors, that were collected on or before the date of the Encounter. The data comes from the MD facility where the Encounter took place. Date/Time Smoking Status/Tobacco Use Comment F acility Dec 05, 2024 02:00 PM VA-TOBACCO USE ADVICE [facility] Dec 05, 2024 02:00 PM VA-TOBACCO USE INSIGHT DIRECTOR YES [facility] Dec 05, 2024 02:00 PM VA-TOBACCO USE ALONA RY DAY CIGARETTES [facility] Dec 05, 2024 02:00 PM VA-TOBACCO USE ALONA RY DAY OTHER TYPE [facility] Dec 05, 2024 02:00 PM VA-TOBACCO USE ALONA RY DAY SMOKELESS [facility] Dec 05, 2024 02:00 PM VA-TOBACCO USE MED YES [facility] Dec 05, 2024 02:00 PM VA-TOBACCO USE WI 30 MIN OF WAKEUP [facility] Jan 14, 2024 12:30 PM AH-BPR SMOKING DEPLOYMENT YES [facility] Dec 15, 2023 09:00 AM VA-TOBACCO USE > 1 5 LESS THAN 30 YEARS [facility] Dec 15, 2023 09:00 AM VA-TOBACCO USE ADVICE [facility] Dec 15, 2023 09:00 AM VA-TOBACCO USE INSIGHT DIRECTOR NO [facility] Dec 15, 2023 09:00 AM VA-TOBACCO USE MED YES [facility] Dec 15, 2023 09:00 AM VA-TOBACCO USE WI 30 MIN OF WAKEUP [facility] Dec 15, 2023 09:00 AM VA-TOBACCO USER EVERY DAY [facility] Encounter Notes: All associated encounter notes This section contains the clinical notes associated to the Encounter. Date/Time Encounter Note(s) Provider Source Dec 06, 2024 01:44 PM PHYSICIAN LETTERS: LOCAL TITLE: TEST RESULT GENERAL LETTER STL STANDARD TITLE: PHYSICIAN LETTERS DATE OF NOTE: DEC 06, 2024@13:44 ENTRY DATE: DEC 06, 2024@13:44:12 AUTHOR: ASHLEY PRAKASH EXP COSIGNER: URGENCY: STATUS: COMPLETED [facility] [address] [place] [address] DEC 06, 2024 DENNIS ROBERTS [id number], [place] [address] Dear Dennis Roberts, I would like to update you on your recent test results. LIPID PROFILE - High cholesterol and triglycerides (lipids) are risk factors for heart disease. Your cholesterol should fall between 140 and 200, and your triglycerides levels should be less than or equal to 150. HDL is the good cholesterol and should ideally be greater than 40. LDL is the bad cholesterol and optimal levels should be less than 100 (near optimal is between 100 and 129). TRIGLYCERIDE 169 H mg/dL 12/05/2024 14:33 CHOLESTEROL 183 mg/dL 12/05/2024 14:33 HDL(New) 37 L mg/dL 12/05/2024 14:33 CALCULATED LDL 112 mg/dL 12/05/2024 14:33 No DIRECT LDL EO data found These readings are within normal limits. HEMOGLOBIN A1C - Gives us information about your diabetes (sugar or glucose) control over the past 3 months. Your target is to keep your A1C below 6 %. HGA1C 5.5 % 12/05/2024 14:33 These readings are within normal limits. CBC - A complete blood count (CBC) gives important information about the kinds and numbers of cells in the blood, especially red blood cells, white blood cells, and platelets. HGB 15.4 g/dL 12/05/2024 14:33 HEMATOCRIT 42.3 % (12/05/24 14:33) PLT 242 10*3/uL 12/05/2024 14:33 WHITE BLOOD COUNT 6.0 10*3/uL (12/05/24 14:33) These readings are within normal limits. CHEM 7 - This is important information about the current status of your kidneys, liver, and electrolyte and acid/base balance as well as of your blood sugar and blood proteins. SODIUM 136 mEq/L 12/05/2024 14:33 POTASSIUM 3.7 mEq/L 12/05/2024 14:33 CHLORIDE 102 mEq/L 12/05/2024 14:33 UREA NITROGEN 12.9 mg/dL 12/05/2024 14:33 CREATININE 1.05 mg/dL 12/05/2024 14:33 CALCIUM 9.6 mg/dL 12/05/2024 14:33 CARBON DIOXIDE 27 mEq/L 12/05/2024 14:33 GLUCOSE 81 mg/dL 12/05/2024 14:33 EGFR (CKD-EPI 2020) 83.83 12/05/2024 14:33 These readings are within normal limits. LIVER FUNCTION PANEL - These are tests for liver function: PROTEIN 7.5 g/dL 12/05/2024 14:33 ALBUMIN 4.6 g/dL 12/05/2024 14:33 TOTAL BILIRUBIN 1.0 mg/dL 12/05/2024 14:33 ALKALINE PHOSPHATASE 102 U/L 12/05/2024 14:33 AST/SGOT 20 U/L 12/05/2024 14:33 ALT/SGPT 19 U/L 12/05/2024 14:33 These readings are within normal limits. PSA - Prostate-specific antigen is a protein produced by cells of the prostate gland. The PSA test measures the level of PSA in the blood. PSA PROST. SPECIFIC AG.(PB-STL) 0.873 ng/mL 12/05/2024 14:33 These readings are within normal limits. TSH - Thyroid-stimulating hormone (also known as TSH or thyrotropin) is a peptide hormone synthesized and secreted by thyrotrope cells in the anterior pituitary gland, which regulates the endocrine function of the thyroid gland. TSH TSH 1.898 uIU/mL 12/05/2024 14:33 These readings are within normal limits. URINALYSIS - A urinalysis (or UA) is an array of tests performed on urine and one of the most common methods of medical diagnosis. URINALYSIS URINE COLOR Light-Yellow 12/05/2024 14:39 APPEARANCE Clear 12/05/2024 14:39 U.PH 6.0 12/05/2024 14:39 U.BILIRUBIN Negative mg/dL 12/05/2024 14:39 U.NITRITE Negative mg/dL 12/05/2024 14:39 These readings are within normal limits. FUTURE APPOINTMENTS: 12/20/2024 09:15 [facility] 01/09/2025 15:00 [facility] E2 PCP 04/04/2025 14:30 [facility]2 PCP Sincerely, COLBY Wahl PA-C, JOHN THOMAS II ONEILL, MAUREEN [facility] Dec 05, 2024 01:57 PM NURSING NOTE: LOCAL TITLE: V15 PACT FACE TO FACE NOTE STL STANDARD TITLE: NURSING NOTE DATE OF NOTE: DEC 05, 2024@13:57 ENTRY DATE: DEC 05, 2024@13:57:15 AUTHOR: ALESHIA WALSH EXP COSIGNER: URGENCY: STATUS: COMPLETED Provider Visit: Patient Identifiers : Full Name Date of Reason for visit: Established Follow-Up Mode of Arrival: Ambulatory Allergy Review: Patient has answered NKA Allergy list reviewed and remains current. Recent Vital Signs: Temperature: 98.5 F [36.9 C] (12/05/2024 13:54) Pulse: 88 (12/05/2024 13:54) Respiration: 18 (12/05/2024 13:54) B/P: 148/95 (12/05/2024 13:54) Pain: 4 (12/05/2024 13:54) Wt: 232.1 lb [105.28 kg] (12/05/2024 13:54) Ht: 74 in [188.0 cm] (01/14/2024 12:44) BMI: 29.9 POX: 99% (12/05/2024 13:54) Would you like to discuss any personal problem, family problem, alcohol use, drug use, or a mental or emotional illness? No Contact provided Primary Care phone number and encouraged to call if any questions or concerns. Review that after hours nurse line [phone] and emergency room are available 17/05 for patient use. Contact verbalized good understanding. Suicide Screen - V: C-SSRS Screening [place] Suicide Severity Rating Scale (C-SSRS) screener 1. Over the past month, have you wished you were or wished you could go to sleep and not wake up? No 2. Over the past month, have you had any actual thoughts of killing yourself? No 3. Over the past month, have you been thinking about how you might do this? Response not required due to responses to other questions. 4. Over the past month, have you had these thoughts and had some intention of acting on them? Response not required due to responses to other questions. 5. Over the past month, have you started to work out or worked out the details of how to kill yourself? Response not required due to responses to other questions. 6. If yes, at any time in the past month did you intend to carry out this plan? Response not required due to responses to other questions. 7. In your lifetime, have you ever done anything, started to do anything, or prepared to do anything to end your life (for example, collected pills, obtained a gun, gave away valuables, went to the roof but didn't jump)? No 8. If YES, was this within the past 3 months? Response not required due to responses to other questions. Depression Screening - V: Perform PHQ-2 A PHQ-2 screen was performed. The score was 0 which is a negative screen for depression. Over the past two weeks, how often have you been bothered by the following problems? 1. Little interest or pleasure in doing things Not at all 2. Feeling down, depressed, or hopeless Not at all Alcohol Use Screen (AUDIT-C) - V: Alcohol Screen: SCREEN FOR ALCOHOL (AUDIT-C) An alcohol screening test (AUDIT-C) was negative (score=4). 1. How often did you have a drink containing alcohol in the past year? Consider a drink to be a 12 ounce can or bottle of regular beer, 8 ounces of malt liquor, a 5 ounce glass of table wine, or a 1.5 ounce shot of liquor (like scotch, gin, or vodka). Two to three times per week 2. How many drinks containing alcohol did you have on a typical day when you were drinking in the past year? One or two drinks 3. How often did you have six or more drinks on one occasion in the past year? Less than monthly Tobacco Use Screening - AT,DE,L,M,N,P,PH,PS,RT,S,U: The patient smokes cigarettes every day. The patient states they have smoked for the following number of years: # of years: 20 Average number of packs/day over the entire time patient smoked: Packs/day: 1.5 The patient uses other type(s) of tobacco every day. Other Tobacco Type(s) used: Smokeless tobacco (e.g., dip, chew, snuff, snus) /raul/ ALESHIA WALSH LICENSED PRACTICAL NURSE Signed: 12/05/2024 13:59 ALESHIA WALSH [facility] Dec 05, 2024 01:55 PM PRIMARY CARE NOTE: LOCAL TITLE: PRIMARY CARE PROVIDER ESTABLISHED VISIT [facility] STANDARD TITLE: PRIMARY CARE NOTE DATE OF NOTE: DEC 05, 2024@13:55 ENTRY DATE: DEC 05, 2024@13:55:20 AUTHOR: ASHLEY PRAKASH COSIGNER: URGENCY: STATUS: COMPLETED Patient is 54 and WHITE Self Identified Gender - Man Reason for visit:Scheduled follow-up Chief Complaint: follow up, yearly History of Present Illness: mr roberts is coming in for a scheduled visit. he reports he wants to try cial[facility]. he is on tamsulosin but feels it isnt working great. he reports he wants to quit tobacco use. he reports he is on the venlafaxine but doesnt like the ED side effects. no si/hi. he has generalized pain but a lot of pain in the back he would like to talk to a chiropractor. Private PCP Dr Kai Brown [facility] 1) gerd - on omeprazole but not working, egd scheduled soon. on pantoprazole. 2) bph - controlled on tamsulosin not great. wants to try something. 3) elevated blood pressure - says it is lower at home. 4) erectile dysfunction - cialis 5) tobacco - chew 1 tin a day since 24 yo. cigs intermittent for 20 years. 6) copd - says he had pft. spiriva helps 7) ibs c/d - gi managing 8) plantar fasciitis - s/p steroid injection 9) dermal cysts and cysts found in organ 10) headaches - daily tension headaches 11) arthritis pain - uses tylenol and nsaids 12) back pain 13) hx of fibromyalgia - complains of pain all over Health maintenance: PSA: OLINDA: colonoscopy: 2020, rec f/u 2030 occult blood: DM: HGB A1c - eye exam zoster - pneumovac - tetanus - PSHx cholecystectomy, appendectomy, FB retraction FHx: brain aneursym, CAD, drug addiction, copd, Soc Hx: lives with in a house. sexual partners: females. 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 +tobacco. drinks 3 beers once a week. no MJ. ROS constitutional: no F/C/S vision/hearing: no hearing aids/glasses ENT: no dentures cardio: no CP, no SOB Pulm: no cough, no congestion GI: no N/V, no diarrhea or constipation : no hematuria, no dysuria M/S: no arthritic pain neuro: no hx of CVA Endo: no diabetes, no thyroid disease Medication Review: The essential med list for review which includes the patient's active VA prescriptions and if applicable, remote VA prescriptions, non-VA prescriptions, and discontinued VA prescriptions within the last 90 days and known allergies including local and remote allergies have been reviewed. Allergies:Patient has answered NKA Active and Recently Outpatient Medications (excluding Supplies): Active Outpatient Medications Status 1) PANTOPRAZOLE NA 40MG EC TAB TAKE ONE TABLET BY MOUTH TWO ACTIVE TIMES A DAY BEFORE MEALS TAKE 30 MINUTES BEFORE MEAL(S) Indication: FOR GASTROESOPHAGEAL REFLUX DISEASE 2) POLYETHYLENE GLYCOL 3350 ORAL PWDR MIX AND DRINK 1 CAPFUL BY ACTIVE MOUTH TWICE A DAY (MEASURE WITH CAP AND MIX IN 8 OZ OF WATER) Indication: FOR CONSTIPATION 3) TIOTROPIUM 2.5MCG/ACTUAT 60D ORAL INHL INHALE 2 INHALATIONS ACTIVE ORAL INHALATION ONCE A DAY (ADMINISTER AT SAME TIME EACH DAY) Indication: FOR COPD 4) VENLAFAXINE HCL 37.5MG 24HR SA CAP TAKE ONE CAPSULE BY MOUTH ACTIVE ONCE A DAY WITH FOOD. DO NOT ABRUPTLY DISCONTINUE MEDICATION. Indication: FOR ANXIETY Temperature: 98.5 F [36.9 C] (12/05/2024 13:54) Blood Pressure: 138/88 (12/05/2024 14:00) Pulse: 88 (12/05/2024 13:54) Respirations: 18 (12/05/2024 13:54) General: A&Ox3, pleasant, no distress HEENT: ears - R canal clear without errythema, TM seen without bulging L canal clear without errythema, TM seen without bulging nares - no secretions, patent oropharynx - no errythema or exudates noted neck: supple, no cervical LAD palpated heart: S1, S2, regular lungs: B CTA, no wheezes/crackles abd: soft ext: no calf tenderness, non edema Musculoskeletal: no pain on palpation, no crepitus, BUE - AROM WFL BLE - AROM WFL neuro: no gait abnormality Assessment/Plan: 1) anxiety -trial of bupropion 2) tobacco use -bupropion, patch and gum ordered 3) back pain -chiropractor consult 4) fibromyalgia -cont movement 5) bph -try finesteride (not on days with cialis) 6) ED -cialis RTC: 1 month vvc, 4 months f2f or vvc CLINICAL REMINDERS COMPLETED Tobacco Use Follow-Up - - AT,DE,M,N,P,PH,PS,RT,S: Patient was advised to stop smoking and/or using other tobacco products. Advised patient that a combination of behavioral counseling and FDA-approved cessation medications is the most effective way to ensure their success in stopping to smoke and/or using other tobacco products. The patient requested and was provided with more information about behavioral counseling and other support strategies discussed. Informed patient that medications can help with cravings and withdrawal symptoms, and they greatly increase the chances of successfully stopping your tobacco use. The patient requested and was provided with a prescription for tobacco cessation medications. The patient uses tobacco within 30 minutes of waking up. /raul/ Ashley Prakash PA-C PA-C Signed: 12/05/2024 14:37 ASHLEY PRAKASH [facility]
--- OUTSIDE RECORDS SUMMARY | 2025-04-04 09:30 | XMS_ITS ---
Author Name [facility] Organization [facility] [place] Address [address] [facility] [place] [address] Care Team Providers Care Labels Molder Name Role Phone ASHLEY PRAKASH Primary Care [...] (PPO) [employer] [place] Oct 25, [id number] [phone] DENNIS OVERTON PATIENT [employer] [place] PREFERRED PROVIDER ORGANIZAT ION (PPO) [employer] Oct 25, [id number] [phone] DENNIS OVERTON PATIENT [employer] [place] PREFERRED PROVIDER ORGANIZAT ION (PPO) [employer] Oct 25, [id number] [phone] DENNIS OVERTON PATIENT [employer] [place] PREFERRED PROVIDER ORGANIZAT ION (PPO) [employer] Oct 25, [id number] [phone] DENNIS OVERTON PATIENT [employer]) PRESCRIPT ION RX PLAN Oct 25, 2022 [facility] [id number] [phone] DENNIS OVERTON PATIENT Selected Encounter This section includes the information on record at [place] for the Encounter. Date/Time Encounter Type Encounter Description Reason Provider Source Apr 04, 2025 02:30 PM OFFICE O/P EST HI 40 MIN PRIMARY CARE/MEDICINE ICD-10-CM F32.A Depression, unspecified ASHLEY PRAKASH Marii Encounter Template Text not used by DC Assessments - Encounter Diagnoses This section includes the primary and secondary diagnoses documented for the Encounter. Date/Time Primary/Secondary Diagnosis Diagnosis Name Provider Source Apr 04, 2025 03:09 PM PRIMARY Depression, unspecified PRAKASH,ASHLEY [facility] Apr 04, 2025 03:09 PM SECONDARY Elevated blood-pressure reading, w/o diagnosis of htn [facility] Apr 04, 2025 03:09 PM SECONDARY Gastro-esophageal reflux disease without esophagitis [facility] Plan of Treatment: Future Appointments (+ 6 months) and Future Tests (+/- 45 days) The Plan of Treatment section includes future care activities for the patient from all [place] treatmentfacilities. This section includes future appointments and future orders which are active, pending or scheduled. Future Appointments This section includes appointments that were scheduled to occur 6 months from the date of the Encounter, up to a maximum of 20 appointments. The data comes from all [place] treatment facilities. Appointment Date/Time Appointment Type Appointme nt Facility Name Oct 04, 2025 02:00 PM AMBULATORY - MEDICINE [facility] Lab Results: +/- 30 days of the encounter This section includes the Chemistry and Hematology Lab Results on record with DC for the patient. Radiology Reports and Pathology Reports are provided separately, in subsequent sections. Lab Results This section contains the Chemistry/Hematology Results that were resulted 30 days before or 30 daysafter the date of the Encounter. Date/Time Source Result Type Result - Unit Interpretation Reference Range Specimen Type Comment Apr 04, 2025 03:13 PM [facility] URINALYSIS W/ CX REFLEX (STL-PB) URINE Specim en Type: URINE No comment entered. Ordering Provider: ASHLEY PRAKASH Report Released Date/Time: Apr 04, 2025 02:58 PM Reporting Lab: [facility] [address] [facility] [phone] Performing Lab: [facility] [address] [facility] [phone] URINE COLOR Colorless Yellow U.BILIRUBIN Negative mg/dL Negative U.PH 6.0 5.0-8.0 APPEARANCE Clear Clear U.NITRITE Negative mg/dL Negative URN.GLUCOSE Normal mg/dL Negative URN.PROTEIN Negative mg/dL URN.UROBILINOGEN Normal mg/dL Normal URN.BLOOD Negative mg/dL Negative-Trace URN.KETONES Negative mg/dL Negative-Trac e URN.LEUK.EST. Negative mg/dL Negative-Tr arelis URN.SPECIFIC GRAVITY 1.006 Vital Signs: All taken on the encounter date This section contains inpatient and outpatient Vital Signs collected on the date of the Encounter. Date/Time Temperature Pulse Blood Pressure Respiratory Rate SP02 Pain Height Weight Body Mass Index Source Apr 04, 2025 03:04 PM 132/86 [facility] Apr 04, 2025 02:38 PM 97.9 89 131/89 18 96 4 226.5 29 [facility] Social History: Smoking Status (Most current) and Tobacco Use (All prior to encounter date) This section includes the most current, and the historical, smoking and tobacco- related health factors from the [place] facility where the Encounter took place. Current Smoking Status This section includes the most current smoking, or tobacco-related health factor, from the [place] facility where the Encounter took place. Date/Time Current Smoking Status Comment Fabiana villanueva Dec 05, 2024 02:00 PM VA-TOBACCO USE ALONA RY DAY CIGARETTES [facility] Tobacco Use History This section includes a history of the smoking, or tobacco-related health factors, that were collected on or before the date of the Encounter. The data comes from the [place] facility where the Encounter took place. Date/Time Smoking Status/Tobacco Use Comment F acility Dec 05, 2024 02:00 PM VA-TOBACCO USE ADVICE [facility] Dec 05, 2024 02:00 PM VA-TOBACCO USE COLD STRIP ROLLER YES [facility] Dec 05, 2024 02:00 PM VA-TOBACCO USE ALONA RY DAY CIGARETTES [facility] Dec 05, 2024 02:00 PM VA-TOBACCO USE ALONA RY DAY OTHER TYPE [facility] Dec 05, 2024 02:00 PM VA-TOBACCO USE ALONA RY DAY SMOKELESS [facility] Dec 05, 2024 02:00 PM VA-TOBACCO USE MED YES [facility] Dec 05, 2024 02:00 PM VA-TOBACCO USE WI 30 MIN OF WAKEUP [facility] Jan 14, 2024 12:30 PM AH-BPR SMOKING DEPLOYMENT YES [facility] Dec 15, 2023 09:00 AM VA-TOBACCO USE > 1 5 LESS THAN 30 YEARS [facility] Dec 15, 2023 09:00 AM VA-TOBACCO USE ADVICE [facility] Dec 15, 2023 09:00 AM VA-TOBACCO USE COLD STRIP ROLLER NO [facility] Dec 15, 2023 09:00 AM VA-TOBACCO USE MED YES [facility] Dec 15, 2023 09:00 AM VA-TOBACCO USE WI 30 MIN OF WAKEUP [facility] Dec 15, 2023 09:00 AM VA-TOBACCO USER EVERY DAY [facility] Encounter Notes: All associated encounter notes This section contains the clinical notes associated to the Encounter. Date/Time Encounter Note(s) Provider Source Apr 04, 2025 02:40 PM NURSING NOTE: LOCAL TITLE: V15 PACT FACE TO FACE NOTE [facility] STANDARD TITLE: NURSING NOTE DATE OF NOTE: APR 04, 2025@14:40 ENTRY DATE: APR 04, 2025@14:40:56 AUTHOR: ALESHIA WALSH EXP COSIGNER: URGENCY: STATUS: COMPLETED Provider Visit: Patient Identifiers : Full Name Date of Reason for visit: Established Follow-Up Mode of Arrival: Ambulatory Allergy Review: ALLERGIES/ADVERSE REACTIONS - NONE FOUND Allergy list reviewed and remains current. Recent Vital Signs: Temperature: 97.9 F [36.6 C] (04/04/2025 14:38) Pulse: 89 (04/04/2025 14:38) Respiration: 18 (04/04/2025 14:38) B/P: 131/89 (04/04/2025 14:38) Pain: 4 (04/04/2025 14:38) Wt: 226.5 lb [102.74 kg] (04/04/2025 14:38) Ht: 74 in [188.0 cm] (01/14/2024 12:44) BMI: 29.1 POX: 96% (04/04/2025 14:38) Would you like to discuss any personal problem, family problem, alcohol use, drug use, or a mental or emotional illness? No Contact provided Primary Care phone number and encouraged to call if any questions or concerns. Review that after hours nurse line ext.[phone] and emergency room are available 17/05 for patient use. Contact verbalized good understanding. Homelessness/Food Insecurity Screen - DI,L,N,P,PH,PS,S,U: In the past 2 months, have you been living in stable housing that you own, rent, or stay in as part of a household? Yes - Living in stable housing. Are you worried or concerned that in the next 2 months you may NOT have stable housing that you own, rent, or stay in as part of a household? No - Not worried about housing near future [facility] [place] reports the following: Within the past 12 months, you worried whether your food would run out before you got money to buy more. Never true Within the past 12 months, the food you bought just didn't last and you didn't have money to get more. Never true [facility] MAP: PERSONAL HEALTH PLAN INVENTORY & MAP [place]'s Response: family /es/ ALESHIA WALSH LICENSED PRACTICAL NURSE Signed: 04/04/2025 14:42 ALESHIA WALSH [facility] Apr 04, 2025 02:38 PM PRIMARY CARE NOTE: LOCAL TITLE: PRIMARY CARE PROVIDER ESTABLISHED VISIT [facility] STANDARD TITLE: PRIMARY CARE NOTE DATE OF NOTE: APR 04, 2025@14:38 ENTRY DATE: APR 04, 2025@14:39 AUTHOR: ASHLEY PRAKASH EXP COSIGNER: URGENCY: STATUS: COMPLETED Patient is 54 and WHITE Self Identified Gender - Man Reason for visit:Scheduled follow-up Chief Complaint: mood and anxiety f/u History of Present Illness: mr overton is coming in for a scheduled visit. he reports he has had plantar fasciitis for 9 months and its finally getting better with steroid injection. now he is starting to have tendonitis. he is seeing private podiatry and he is getting fitted for a pair of inserts. he may want to see the [place] podiatry. he reports the tamsulosin worked better than the finasteride but the tamsulosin wasnt great as well. PMH 1) gerd - on omeprazole. on pantoprazole but pt like omeprazole better. needs script. 2) bph - controlled on tamsulosin not great. finasteride helping but not great alone. 3) elevated blood pressure - does not check it. 4) erectile dysfunction - cialis 5) tobacco - chew 1 tin a day since 24 yo. cigs intermittent for 20 years. 6) copd - says he had pft. spiriva helps 7) ibs c/d - gi managing 8) plantar fasciitis - s/p steroid injection 9) dermal cysts and cysts found in organ 10) headaches - daily tension headaches, tolerable 11) arthritis pain - uses tylenol and nsaids 12) back pain 13) hx of fibromyalgia - complains of pain all over Health maintenance: PSA: 0.873 11/2024 OLINDA: colonoscopy: 2020, rec f/u 2030 occult blood: DM: HGB A1c - eye exam zoster - pneumovac - tetanus - PSHx cholecystectomy, appendectomy, FB retraction FHx: brain aneursym, CAD, drug addiction, copd, Soc Hx: lives with in a house. sexual partners: females. 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 +tobacco. drinks 3 beers once [...] (excluding Supplies): Active Outpatient Medications Status 1) ALUMINUM CL HEXAHYDRATE 20% TOP SOLN APPLY LIGHTLY TO ACTIVE AFFECTED AREA(S) ONCE A DAY NEEDED Indication: FOR EXCESSIVE SWEATING 2) BUPROPION HCL 150MG 24HR SA TAB TAKE ONE TABLET BY MOUTH ACTIVE ONCE A DAY SWALLOW WHOLE - DO NOT CRUSH OR CHEW. Indication: FOR DEPRESSION 3) FINASTERIDE 5MG TAB TAKE ONE TABLET BY MOUTH ONCE A DAY ACTIVE SWALLOW WHOLE, DO NOT CRUSH, SPLIT, OR CHEW. Indication: FOR BENIGN PROSTATIC HYPERPLASIA 4) NICOTINE 21MG/24HR PATCH APPLY 1 PATCH TO SKIN SITE EVERY ACTIVE MORNING REMOVE OLD PATCH BEFORE APPLYING NEW ONE. ROTATE SITES. DO NOT SMOKE WHILE WEARING PATCH. Indication: FOR TOBACCO CESSATION 5) NICOTINE 2MG GUM CHEW 1 PIECE OF GUM BY MOUTH EVERY 4 HOURS ACTIVE NEEDED CHEW GUM UNTIL TINGLING SENSATION, THEN PARK THE GUM BETWEEN CHEEK AND GUM AREA. REPEAT (RE-CHEW) WHEN TINGLING STOPS. Indication: FOR TOBACCO CESSATION 6) POLYETHYLENE GLYCOL 3350 ORAL PWDR MIX AND DRINK 1 CAPFUL BY ACTIVE MOUTH TWICE A DAY (MEASURE WITH CAP AND MIX IN 8 OZ OF WATER) Indication: FOR CONSTIPATION 7) TADALAFIL 10MG TAB TAKE ONE TABLET BY MOUTH EVERY WEEK ACTIVE NEEDED (TAKE 30 MINUTES PRIOR TO SEXUAL ACTIVITY) - LIMIT 18 DOSES PER 90 DAYS Indication: FOR ERECTILE DYSFUNCTION 8) TIOTROPIUM 2.5MCG/ACTUAT 60D ORAL INHL INHALE 2 INHALATIONS ACTIVE ORAL INHALATION ONCE A DAY (ADMINISTER AT SAME TIME EACH DAY) Indication: FOR COPD Inactive Outpatient Medications Status 1) PANTOPRAZOLE NA 40MG EC TAB TAKE ONE TABLET BY MOUTH TWO TIMES A DAY BEFORE MEALS TAKE 30 MINUTES BEFORE MEAL(S) Indication: FOR GASTROESOPHAGEAL REFLUX DISEASE 9 Total Medications Temperature: 97.9 F [36.6 C] (04/04/2025 14:38) Blood Pressure: 132/86 (04/04/2025 15:04) Pulse: 89 (04/04/2025 14:38) Respirations: 18 (04/04/2025 14:38) General: A&Ox3, pleasant, no distress HEENT: ears [...] WFL neuro: no gait abnormality Assessment/Plan: 1) foot pain -seeing private podiatry 2) bph -try finasteride and flomax, if not better urology consult 3) elevated blood pressure -monitor 4) gerd -reviewed low acid diet -switch back to omeprazole, -overdue to be seen at [facility] RTC: 6 months Time spent on date of visit including face to face time, data review, and chartinmins CLINICAL REMINDERS COMPLETED /raul/ Ashley Prakash PA-C PA-C Signed: 04/04/2025 15:09 ASHLEY PRAKASH [facility]
--- OUTSIDE RECORDS SUMMARY | 2025-06-12 10:53 | XMS_ITS | Continuity of Care Document ---
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 It does not include entries that were removed or entered in error. Problem Status Onset Date Problem Type Date of Resolution Comments Source Contact with and (Suspected) Exposure to Air Pollution Active Condition [facility] Contact with and (suspected) exposure to other hazardous substances Active Condition [facility] Erectile dysfunction (SNOMED CT 182141447) Active Condition [facility] Exposure to Disaster, War and other Hostilities Active Condition [facility] Exposure to potentially hazardous substance Active Condition Dec 09, 2023 Entered By: VASU JORGENSEN I Comment: Burn pits/[place] war [facility] Gastroesophageal reflux disease (SNOMED CT 284173636) Active Condition [facility] Generalized anxiety disorder (SNOMED CT 30454098) Active Condition [facility] Headache, unspecified Active Condition [facility] Heartburn Active Condition [facility] Pain in unspecified Joint Active Condition [facility] Shortness of Breath Active Condition [facility] Tinnitus, unspecified Ear Active Condition [facility] Tobacco use Active Condition [facility] Unspecified Abdominal Pain Active Condition [facility] Unspecified Asthma, Uncomplicated Active Condition [facility] Unspecified visual disturbance Active Condition [facility] Diagnosis: ICD-10-CM F32.A Depression, unspecified Active Diagnosis [facility] Diagnosis: ICD-10-CM Z12.2 Encntr screen for malignant neoplasm of respiratory organs Active Diagnosis [facility] Diagnosis: ICD-10-CM Z72.0 Tobacco use Active Diagnosis [facility] Diagnosis: ICD-10-CM R14.0 Abdominal distension (gaseous) Active Diagnosis [facility] Diagnosis: ICD-10-CM Z01.818 Encounter for other preprocedural examination Active Diagnosis [facility] Diagnosis: ICD-10-CM K21.9 Gastro-esophageal reflux disease without esophagitis Active Diagnosis [facility] Diagnosis: ICD-10-CM H90.3 Sensorineural hearing loss, bilateral Active Diagnosis [facility] Diagnosis: ICD-10-CM K59.01 Slow transit constipation Active Diagnosis [facility] Diagnosis: ICD-10-CM Z77.29 Contact with and exposure to other hazardous substances Active Diagnosis [facility] Diagnosis: ICD-10-CM F41.9 Anxiety disorder, unspecified Active Diagnosis [facility] Diagnosis: ICD-10-CM D22.9 Melanocytic nevi, unspecified Active Diagnosis [facility] Diagnosis: ICD-10-CM K58.2 Mixed irritable bowel syndrome Active Diagnosis [facility] Medications Combined list of outpatient medications from Department of Defense and [facility] Affairs facilities.Medications provided include 1) outpatient medications from the last 15 months, and 2) patient-reported medications. Medication Details Route Status Patient Instructions Prescription Expires Prescription Number Last Dispense Date Ordering Provider Order Date Order Qty Source ALUMINUM CL HEXAHYDRATE 20% SOLN,TOP APPLY LIGHTLY TO AFFECTED AREA(S) ONCE A DAY NEEDED FOR EXCESSIV E SWEATING TOPICA L ACTIVE 12/06/2025 [id number] 5 CATHERINE HENDRICKS 2024 35 [facility] BUPROPION HCL 150MG 24HR TAB,SA TAKE ONE TABLET BY MOUTH ONCE A DAY FOR DEPRESSI ON SWALLOW WHOLE - DO NOT CRUSH OR CHEW. ORAL ACTIVE 12/06/2025 [id number] 5 CATHERINE HENDRICKSEN 2024 42 [facility] FINASTERIDE 5MG TAB TAKE ONE TABLET BY MOUTH ONCE A DAY FOR BENIGN PROSTATI C HYPERPLA SHELIA SWALLOW WHOLE, DO NOT CRUSH, SPLIT, OR CHEW. ORAL ACTIVE 12/06/2025 [id number] 5 RUTHIECATHERINE UNDERWOOD 2024 90 [facility] NICOTINE 21MG/24HRS PATCH APPLY 1 PATCH TO SKIN SITE EVERY MORNING REMOVE OLD PATCH BEFORE APPLYING NEW ONE. ROTATE SITES. DO NOT SMOKE WHILE WEARING PATCH. TRANSD ERMAL ACTIVE 12/06/2025 [id number] 5 CATHERINE HENDRICKS 2024 28 [facility] NICOTINE POLACRILEX 2MG TAB,CHEWG GUM CHEW 1 PIECE OF GUM BY MOUTH EVERY 4 HOURS NEEDED CHEW GUM UNTIL TINGLING SENSATIO N, THEN PARK THE GUM BETWEEN CHEEK AND GUM AREA. REPEAT (RE-CHEW ) WHEN TINGLING STOPS. ORAL ACTIVE 12/06/2025 [id number] 5 CATHERINE HENDRICKS 2024 220 [facility] OMEPRAZOLE 40MG CAP,EC TAKE ONE CAPSULE BY MOUTH EVERY MORNING BEFORE A MEAL FOR GASTROES OPHAGEAL REFLUX DISEASE TAKE 30 MINUTES PRIOR TO FOOD. ORAL ACTIVE 04/05/2026 [id number] 5 CATHERINE HENDRICKS 2024 90 [facility] PANTOPRAZOL E NA 40MG TAB,EC TAKE ONE TABLET BY MOUTH TWO TIMES A DAY BEFORE MEALS FOR GASTROES OPHAGEAL REFLUX DISEASE TAKE 30 MINUTES BEFORE MEAL(S) ORAL 03/14/2025 [id number] 5 CHYNA EMANUEL ER 2023 180 [facility] POLYETHYLEN E GLYCOL 3350 PWDR,ORAL MIX AND DRINK 1 CAPFUL BY MOUTH TWICE A DAY FOR CONSTIPA TION (MEASURE WITH CAP AND MIX IN 8 OZ OF WATER) ORAL 04/12/2025 [id number] 4 MAREK DE LA TORRE 2023 510 [facility] TADALAFIL 10MG TAB TAKE ONE TABLET BY MOUTH EVERY WEEK NEEDED (TAKE 30 MINUTES PRIOR TO SEXUAL ACTIVITY ) - LIMIT 18 DOSES PER 90 DAYS ORAL ACTIVE 12/06/2025 [id number] 5 HENDRICKSCATHERINE UNDERWOOD 2024 18 [facility] TAMSULOSIN HCL 0.4MG CAP TAKE ONE CAPSULE BY MOUTH EVERY EVENING FOR BENIGN PROSTATI C HYPERPLA SHELIA APPROXIM ATELY 30 MINUTES AFTER THE SAME MEAL EACH DAY ORAL ACTIVE 04/05/2026 [id number] 5 HENDRICKSCATHERINE UNDERWOOD 2024 90 [facility] TIOTROPIUM 2.5MCG/ACTU AT IN[facility],ORAL,6 0D,4GM INHALE 2 INHALATI ONS ORAL INHALATI ON ONCE A DAY (ADMINIS TER AT SAME TIME EACH DAY) RESPIR ATORY (INHAL ATION) ACTIVE 02/20/2026 [id number] 5 CATHERINE HENDRICKS 2024 3 [facility] TIOTROPIUM 2.5MCG/ACTU AT [facility],ORAL,6 0D,4GM INHALE 2 INHALATI ONS ORAL INHALATI ON ONCE A DAY (ADMINIS TER AT SAME TIME EACH DAY) RESPIR ATORY (INHAL ATION) DISCONT INUED 03/01/2025 [id number] 5 CATHERINE HENDRICKS 2023 3 [facility] VENLAFAXINE HCL 37.5MG 24HR CAP,SA TAKE ONE CAPSULE BY MOUTH ONCE A DAY FOR ANXIETY WITH FOOD. DO NOT ABRUPTLY DISCONTI NUE MEDICATI ON. ORAL DISCONT INUED BY PROVIDE R 12/30/2024 [id number] 4 CATHERINE HENDRICKS 2023 42 [facility] Results Combined list of recent chemistry, hematology and other laboratory results from Department of Defense and Veterans Affairs, ranging from 15 months to all on record, depending upon the facility. Order Name Results Value Reference Range Date Interpretation Specimen Comments Source URINALYS IS W/ CX REFLEX (STL-PB) COLOR OF URINE Colorles s 04/04 Specimen Type: URINE No comment entered. Ordering Provider: PAULINO HENDRICKS Report Released Date/Time: Apr 04, 2025 02:58 PM Reporting Lab: [facility] [place] [address] Performing Lab: [facility] DIV[facility] URINALYS IS W/ CX REFLEX (STL-PB) BILIRUBIN. TOTAL [PRESENCE] IN URINE BY TEST STRIP Negative mg/dL 04/04 Specimen Type: URINE No comment entered. Ordering Provider: PAULINO HENDRICKS Report Released Date/Time: Apr 04, 2025 02:58 PM Reporting Lab: [facility] [place] [address] Performing Lab: [facility] DIVISION URINALYS IS W/ CX REFLEX (STL-PB) PH OF URINE BY TEST STRIP 6.0 5.0 - 8.0 04/04 Specimen Type: URINE No comment entered. Ordering Provider: PAULINO HENDRICKS Report Released Date/Time: Apr 04, 2025 02:58 PM Reporting Lab: [facility] [place] [address] Performing Lab: [facility] DIVISION URINALYS IS W/ CX REFLEX (STL-PB) APPEARANCE OF URINE Clear 04/04 Specimen Type: URINE No comment entered. Ordering Provider: PAULINO HENDRICKS Report Released Date/Time: Apr 04, 2025 02:58 PM Reporting Lab: [facility] [place] [address] Performing Lab: [facility] DIVISION URINALYS IS W/ CX REFLEX (STL-PB) NITRITE [PRESENCE] IN URINE BY TEST STRIP Negative mg/dL 04/04 Specimen Type: URINE No comment entered. Ordering Provider: PAULINO HENDRICKS Report Released Date/Time: Apr 04, 2025 02:58 PM Reporting Lab: [facility] [place] [address] Performing Lab: [facility] DIVISION URINALYS IS W/ CX REFLEX (STL-PB) GLUCOSE [MASS/VOLU ME] IN URINE BY TEST STRIP Normalmg /dL 04/04 Specimen Type: URINE No comment entered. Ordering Provider: PAULINO HENDRICKS Report Released Date/Time: Apr 04, 2025 02:58 PM Reporting Lab: [facility] [place] [address] Performing Lab: [facility] DIVISION URINALYS IS W/ CX REFLEX (STL-PB) PROTEIN [MASS/VOLU ME] IN URINE BY TEST STRIP Negative mg/dL 04/04 Specimen Type: URINE No comment entered. Ordering Provider: PAULINO HENDRICKS Report Released Date/Time: Apr 04, 2025 02:58 PM Reporting Lab: [facility] [place] [address] Performing Lab: [facility] DIVISION URINALYS IS W/ CX REFLEX (STL-PB) URN.UROBIL INOGEN Normalmg /dL 04/04 Specimen Type: URINE No comment entered. Ordering Provider: PAULINO HENDRICKS Report Released Date/Time: Apr 04, 2025 02:58 PM Reporting Lab: [facility] [place] [address] Performing Lab: [facility] DIVISION URINALYS IS W/ CX REFLEX (STL-PB) HEMOGLOBIN [MASS/VOLU ME] IN URINE BY TEST STRIP Negative mg/dL 04/04 Specimen Type: URINE No comment entered. Ordering Provider: PAULINO HENDRICKS Report Released Date/Time: Apr 04, 2025 02:58 PM Reporting Lab: [facility] [place] [address] Performing Lab: [facility] DIVISION URINALYS IS W/ CX REFLEX (STL-PB) KETONES [MASS/VOLU ME] IN URINE BY TEST STRIP Negative mg/dL 04/04 Specimen Type: URINE No comment entered. Ordering Provider: PAULINO HENDRICKS Report Released Date/Time: Apr 04, 2025 02:58 PM Reporting Lab: [facility] [place] [address] Performing Lab: [facility] DIVISION URINALYS IS W/ CX REFLEX (STL-PB) URN.LEUK.E ST. Negative mg/dL 04/04 Specimen Type: URINE No comment entered. Ordering Provider: PAULINO HENDRICKS Report Released Date/Time: Apr 04, 2025 02:58 PM Reporting Lab: [facility] [place] [address] Performing Lab: [facility] DIVISION URINALYS IS W/ CX REFLEX (STL-PB) SPECIFIC GRAVITY OF URINE 1.006 04/04 Specimen Type: URINE No comment entered. Ordering Provider: PAULINO HENDRICKS Report Released Date/Time: Apr 04, 2025 02:58 PM Reporting Lab: [facility] [place] [address] Performing Lab: [facility] DIVISION URINALYS IS (STL-PB) COLOR OF URINE Light-Ye llow 12/05 Specimen Type: URINE No comment entered. Ordering Provider: PAULINO HENDRICKS Report Released Date/Time: Dec 05, 2024 02:26 PM Reporting Lab: [facility] [place] [address] Performing Lab: [facility] DIVISION URINALYS IS (STL-PB) BILIRUBIN. TOTAL [PRESENCE] IN URINE BY TEST STRIP Negative mg/dL 12/05 Specimen Type: URINE No comment entered. Ordering Provider: PAULINO HENDRICKS Report Released Date/Time: Dec 05, 2024 02:26 PM Reporting Lab: [facility] [place] [address] Performing Lab: [facility] DIVISION URINALYS IS (STL-PB) PH OF URINE BY TEST STRIP 6.0 5.0 - 8.0 12/05 Specimen Type: URINE No comment entered. Ordering Provider: PAULINO HENDRICKS Report Released Date/Time: Dec 05, 2024 02:26 PM Reporting Lab: [facility] [place] [address] Performing Lab: [facility] DIVISION URINALYS IS (STL-PB) APPEARANCE OF URINE Clear 12/05 Specimen Type: URINE No comment entered. Ordering Provider: PAULINO HENDRICKS Report Released Date/Time: Dec 05, 2024 02:26 PM Reporting Lab: [facility] [id number] Performing Lab: [facility] DIVISION URINALYS IS (STL-PB) NITRITE [PRESENCE] IN URINE BY TEST STRIP Negative mg/dL 12/05 Specimen Type: URINE No comment entered. Ordering Provider: PAULINO HENDRICKS Report Released Date/Time: Dec 05, 2024 02:26 PM Reporting Lab: [facility] [place] [address] Performing Lab: [facility] DIVISION URINALYS IS (STL-PB) GLUCOSE [MASS/VOLU ME] IN URINE BY TEST STRIP Normalmg /dL 12/05 Specimen Type: URINE No comment entered. Ordering Provider: PAULINO HENDRICKS Report Released Date/Time: Dec 05, 2024 02:26 PM Reporting Lab: [facility] [place] [address] Performing Lab: [facility] DIVISION URINALYS IS (STL-PB) PROTEIN [MASS/VOLU ME] IN URINE BY TEST STRIP Negative mg/dL 12/05 Specimen Type: URINE No comment entered. Ordering Provider: PAULINO HENDRICKS Report Released Date/Time: Dec 05, 2024 02:26 PM Reporting Lab: [facility] [place] [address] Performing Lab: [facility] DIVISION URINALYS IS (STL-PB) URN.UROBIL INOGEN Normalmg /dL 12/05 Specimen Type: URINE No comment entered. Ordering Provider: PAULINO HENDRICKS Report Released Date/Time: Dec 05, 2024 02:26 PM Reporting Lab: [facility] [place] [address] Performing Lab: [facility] DIVISION URINALYS IS (STL-PB) HEMOGLOBIN [MASS/VOLU ME] IN URINE BY TEST STRIP Tracemg/ dL 12/05 Specimen Type: URINE No comment entered. Ordering Provider: PAULINO HENDRICKS Report Released Date/Time: Dec 05, 2024 02:26 PM Reporting Lab: [facility] [place] [address] Performing Lab: [facility] DIVISION URINALYS IS (STL-PB) KETONES [MASS/VOLU ME] IN URINE BY TEST STRIP Negative mg/dL 12/05 Specimen Type: URINE No comment entered. Ordering Provider: PAULINO HENDRICKS Report Released Date/Time: Dec 05, 2024 02:26 PM Reporting Lab: [facility] [place] [address] Performing Lab: [facility] DIVISION URINALYS IS (STL-PB) URN.LEUK.E ST. Negative mg/dL 12/05 Specimen Type: URINE No comment entered. Ordering Provider: PAULINO HENDRICKS Report Released Date/Time: Dec 05, 2024 02:26 PM Reporting Lab: [facility] [place] [address] Performing Lab: [facility] DIVISION URINALYS IS (STL-PB) SPECIFIC GRAVITY OF URINE 1.014 12/05 Specimen Type: URINE No comment entered. Ordering Provider: PAULINO HENDRICKS Report Released Date/Time: Dec 05, 2024 02:26 PM Reporting Lab: [facility] [place] [address] Performing Lab: [facility] DIVISION CBC LEUKOCYTES [#/VOLUME] IN BLOOD BY AUTOMATED COUNT 6.0 10*3/uL 3.6 - 11.2 12/05 Specimen Type: BLOOD No comment entered. Ordering Provider: PAULINO HENDRICKS Report Released Date/Time: Dec 05, 2024 02:26 PM Reporting Lab: [facility] [place] [address] Performing Lab: [facility] DIVISION CBC ERYTHROCYT ES [#/VOLUME] IN BLOOD BY AUTOMATED COUNT 4.69 10*6/uL 4.10 - 5.70 12/05 Specimen Type: BLOOD No comment entered. Ordering Provider: PAULINO HENDRICKS Report Released Date/Time: Dec 05, 2024 02:26 PM Reporting Lab: [facility] [place] [address] Performing Lab: [facility] DIVISION CBC HEMOGLOBIN [MASS/VOLU ME] IN BLOOD 15.4 g/dL 13.1 - 16.8 12/05 Specimen Type: BLOOD No comment entered. Ordering Provider: PAULINO HENDRICKS Report Released Date/Time: Dec 05, 2024 02:26 PM Reporting Lab: [facility] [place] [address] Performing Lab: [facility] DIVISION CBC HEMATOCRIT [VOLUME FRACTION] OF BLOOD 42.3 38.2 - 48.4 12/05 Specimen Type: BLOOD No comment entered. Ordering Provider: PAULINO HENDRICKS Report Released Date/Time: Dec 05, 2024 02:26 PM Reporting Lab: [facility] [place] [address] Performing Lab: [facility] DIVISION CBC MCV [ENTITIC VOLUME] BY AUTOMATED COUNT 90.2 fL 80.0 - 100.0 12/05 Specimen Type: BLOOD No comment entered. Ordering Provider: PAULINO HENDRICKS Report Released Date/Time: Dec 05, 2024 02:26 PM Reporting Lab: [facility] [place] [address] Performing Lab: [facility] DIVISION CBC MCH [ENTITIC MASS] BY AUTOMATED COUNT 32.8 pg 27.0 - 34.0 12/05 Specimen Type: BLOOD No comment entered. Ordering Provider: PAULINO HENDRICKS Report Released Date/Time: Dec 05, 2024 02:26 PM Reporting Lab: [facility] [place] [address] Performing Lab: [facility] DIVISION CBC MCHC [MASS/VOLU ME] BY AUTOMATED COUNT 36.4 g/dL 33.0 - 36.0 12/05 H Specimen Type: BLOOD No comment entered. Ordering Provider: PAULINO HENDRICKS Report Released Date/Time: Dec 05, 2024 02:26 PM Reporting Lab: [facility] [place] [address] Performing Lab: [facility] DIVISION CBC PLATELETS [#/VOLUME] IN BLOOD BY AUTOMATED COUNT 242 10*3/uL 150 - 400 12/05 Specimen Type: BLOOD No comment entered. Ordering Provider: PAULINO HENDRICKS Report Released Date/Time: Dec 05, 2024 02:26 PM Reporting Lab: [facility] [place] [address] Performing Lab: [facility] DIVISION CBC PLATELET MEAN VOLUME [ENTITIC VOLUME] IN BLOOD BY AUTOMATED COUNT 8.8 fL 7.5 - 11.2 12/05 Specimen Type: BLOOD No comment entered. Ordering Provider: PAULINO HENDRICKS Report Released Date/Time: Dec 05, 2024 02:26 PM Reporting Lab: [facility] [place] [address] Performing Lab: [facility] DIVISION CBC ERYTHROCYT E DISTRIBUTI ON WIDTH [RATIO] BY AUTOMATED COUNT 12.4 11.8 - 15.1 12/05 Specimen Type: BLOOD No comment entered. Ordering Provider: PAULINO HENDRICKS Report Released Date/Time: Dec 05, 2024 02:26 PM Reporting Lab: [facility] [place] [address] Performing Lab: [facility] DIVISION CBC LYMPHOCYTE S/100 LEUKOCYTES IN BLOOD BY AUTOMATED COUNT 22 12/05 Specimen Type: BLOOD No comment entered. Ordering Provider: PAULINO HENDRICKS Report Released Date/Time: Dec 05, 2024 02:26 PM Reporting Lab: [facility] [place] [address] Performing Lab: [facility] DIVISION CBC MONOCYTES/ 100 LEUKOCYTES IN BLOOD BY AUTOMATED COUNT 8 12/05 Specimen Type: BLOOD No comment entered. Ordering Provider: PAULINO HENDRICKS Report Released Date/Time: Dec 05, 2024 02:26 PM Reporting Lab: [facility] [place] [address] Performing Lab: [facility] DIVISION CBC NEUTROPHIL S/100 LEUKOCYTES IN BLOOD BY AUTOMATED COUNT 67 12/05 Specimen Type: BLOOD No comment entered. Ordering Provider: PAULINO HENDRICKS Report Released Date/Time: Dec 05, 2024 02:26 PM Reporting Lab: [facility] [place] [address] Performing Lab: [facility] DIVISION CBC EOSINOPHIL S/100 LEUKOCYTES IN BLOOD BY AUTOMATED COUNT 1 12/05 Specimen Type: BLOOD No comment entered. Ordering Provider: PAULINO HENDRICKS Report Released Date/Time: Dec 05, 2024 02:26 PM Reporting Lab: [facility] [place] [address] Performing Lab: [facility] DIVISION CBC BASOPHILS/ 100 LEUKOCYTES IN BLOOD BY AUTOMATED COUNT 1 12/05 Specimen Type: BLOOD No comment entered. Ordering Provider: PAULINO HENDRICKS Report Released Date/Time: Dec 05, 2024 02:26 PM Reporting Lab: [facility] [place] [address] Performing Lab: [facility] DIVISION CBC LYMPHOCYTE S [#/VOLUME] IN BLOOD BY AUTOMATED COUNT 1.32 10*3/uL 0.77 - 4.50 12/05 Specimen Type: BLOOD No comment entered. Ordering Provider: PAULINO HENDRICKS Report Released Date/Time: Dec 05, 2024 02:26 PM Reporting Lab: [facility] [place] [address] Performing Lab: [facility] DIVISION CBC MONOCYTES [#/VOLUME] IN BLOOD BY AUTOMATED COUNT 0.48 10*3/uL 0.19 - 0.80 12/05 Specimen Type: BLOOD No comment entered. Ordering Provider: PAULINO HENDRICKS Report Released Date/Time: Dec 05, 2024 02:26 PM Reporting Lab: [facility] [place] [address] Performing Lab: [facility] DIVISION CBC NEUTROPHIL S [#/VOLUME] IN BLOOD BY AUTOMATED COUNT 4.04 10*3/uL 2.10 - 8.00 12/05 Specimen Type: BLOOD No comment entered. Ordering Provider: PAULINO HENDRICKS Report Released Date/Time: Dec 05, 2024 02:26 PM Reporting Lab: [facility] [place] [address] Performing Lab: [facility] DIVISION CBC EOSINOPHIL S [#/VOLUME] IN BLOOD BY AUTOMATED COUNT 0.08 10*3/uL 0.00 - 0.60 12/05 Specimen Type: BLOOD No comment entered. Ordering Provider: PAULINO HENDRICKS Report Released Date/Time: Dec 05, 2024 02:26 PM Reporting Lab: [facility] [place] [address] Performing Lab: [facility] DIVISION CBC BASOPHILS [#/VOLUME] IN BLOOD BY AUTOMATED COUNT 0.04 10*3/uL 0.00 - 0.20 12/05 Specimen Type: BLOOD No comment entered. Ordering Provider: PAULINO HENDRICKS Report Released Date/Time: Dec 05, 2024 02:26 PM Reporting Lab: [facility] [place] [address] Performing Lab: [facility] DIVISION COMPREHE NSIVE METABOLI C PANEL CREATININE [MASS/VOLU ME] IN SERUM OR PLASMA 1.05 mg/dL 0.70 - 1.30 12/05 Specimen Type: PLASMA Comment: No hemolysis noted. Ordering Provider: PAULINO HENDRICKS Report Released Date/Time: Dec 05, 2024 02:26 PM Reporting Lab: [facility] [place] [address] Performing Lab: [facility] DIVISION COMPREHE NSIVE METABOLI C PANEL UREA NITROGEN [MASS/VOLU ME] IN SERUM OR PLASMA 12.9 mg/dL 9.0 - 25.0 12/05 Specimen Type: PLASMA Comment: No hemolysis noted. Ordering Provider: PAULINO HENDRICKS Report Released Date/Time: Dec 05, 2024 02:26 PM Reporting Lab: [facility] [place] [address] Performing Lab: [facility] DIVISION COMPREHE NSIVE METABOLI C PANEL GLUCOSE [MASS/VOLU ME] IN SERUM OR PLASMA 81 mg/dL 72 - 99 12/05 Specimen Type: PLASMA Comment: No hemolysis noted. Ordering Provider: PAULINO HENDRICKS Report Released Date/Time: Dec 05, 2024 02:26 PM Reporting Lab: [facility] [place] [id number] Performing Lab: [facility] [place] [id number] DIVISION COMPREHE NSIVE METABOLI C PANEL SODIUM [MOLES/VOL UME] IN SERUM OR PLASMA 136 meq/L 136 - 145 12/05 Specimen Type: PLASMA Comment: No hemolysis noted. Ordering Provider: PAULINO HENDRICKS Report Released Date/Time: Dec 05, 2024 02:26 PM Reporting Lab: [facility] [place] [address] Performing Lab: [facility] DIVISION COMPREHE NSIVE METABOLI C PANEL POTASSIUM [MOLES/VOL UME] IN SERUM OR PLASMA 3.7 meq/L 3.5 - 5.0 12/05 Specimen Type: PLASMA Comment: No hemolysis noted. Ordering Provider: PAULINO HENDRICKS Report Released Date/Time: Dec 05, 2024 02:26 PM Reporting Lab: [facility] [place] [address] Performing Lab: [facility] DIVISION COMPREHE NSIVE METABOLI C PANEL CHLORIDE [MOLES/VOL UME] IN SERUM OR PLASMA 102 meq/L 98 - 107 12/05 Specimen Type: PLASMA Comment: No hemolysis noted. Ordering Provider: PAULINO HENDRICKS Report Released Date/Time: Dec 05, 2024 02:26 PM Reporting Lab: [facility] [place] [address] Performing Lab: [facility] DIVISION COMPREHE NSIVE METABOLI C PANEL CARBON DIOXIDE, TOTAL [MOLES/VOL UME] IN SERUM OR PLASMA 27 meq/L 22 - 31 12/05 Specimen Type: PLASMA Comment: No hemolysis noted. Ordering Provider: PAULINO HENDRICKS Report Released Date/Time: Dec 05, 2024 02:26 PM Reporting Lab: [facility] [place] [address] Performing Lab: [facility] DIVISION COMPREHE NSIVE METABOLI C PANEL CALCIUM [MASS/VOLU ME] IN SERUM OR PLASMA 9.6 mg/dL 8.4 - 10.4 12/05 Specimen Type: PLASMA Comment: No hemolysis noted. Ordering Provider: PAULINO HENDRICKS Report Released Date/Time: Dec 05, 2024 02:26 PM Reporting Lab: [facility] [place] [address] Performing Lab: [facility] DIVISION COMPREHE NSIVE METABOLI C PANEL PROTEIN [MASS/VOLU ME] IN SERUM OR PLASMA 7.5 g/dL 6.0 - 8.6 12/05 Specimen Type: PLASMA Comment: No hemolysis noted. Ordering Provider: PAULINO HENDRICKS Report Released Date/Time: Dec 05, 2024 02:26 PM Reporting Lab: [facility] [place] [address] Performing Lab: [facility] DIVISION COMPREHE NSIVE METABOLI C PANEL ALBUMIN [MASS/VOLU ME] IN SERUM OR PLASMA 4.6 g/dL 3.4 - 5.0 12/05 Specimen Type: PLASMA Comment: No hemolysis noted. Ordering Provider: PAULINO HENDRICKS Report Released Date/Time: Dec 05, 2024 02:26 PM Reporting Lab: [facility] [place] [address] Performing Lab: [facility] [place] [id number] DIVISION COMPREHE NSIVE METABOLI C PANEL BILIRUBIN. TOTAL [MASS/VOLU ME] IN SERUM OR PLASMA 1.0 mg/dL 0.2 - 1.2 12/05 Specimen Type: PLASMA Comment: No hemolysis noted. Ordering Provider: PAULINO HENDRICKS Report Released Date/Time: Dec 05, 2024 02:26 PM Reporting Lab: [facility] [place] [address] Performing Lab: [facility] DIVISION COMPREHE NSIVE METABOLI C PANEL ALKALINE PHOSPHATAS E [ENZYMATIC ACTIVITY/V OLUME] IN SERUM OR PLASMA 102 U/L 40 - 150 12/05 Specimen Type: PLASMA Comment: No hemolysis noted. Ordering Provider: PAULINO HENDRICKS Report Released Date/Time: Dec 05, 2024 02:26 PM Reporting Lab: [facility] [place] [address] Performing Lab: [facility] DIVISION COMPREHE NSIVE METABOLI C PANEL ASPARTATE AMINOTRANS FERASE [ENZYMATIC ACTIVITY/V OLUME] IN SERUM OR PLASMA 20 U/L 5 - 34 12/05 Specimen Type: PLASMA Comment: No hemolysis noted. Ordering Provider: PAULINO HENDRICKS Report Released Date/Time: Dec 05, 2024 02:26 PM Reporting Lab: [facility] [place] [address] Performing Lab: [facility] DIVISION COMPREHE NSIVE METABOLI C PANEL ALANINE AMINOTRANS FERASE [ENZYMATIC ACTIVITY/V OLUME] IN SERUM OR PLASMA 19 U/L 8 - 40 12/05 Specimen Type: PLASMA Comment: No hemolysis noted. Ordering Provider: PAULINO HENDRICKS Report Released Date/Time: Dec 05, 2024 02:26 PM Reporting Lab: [facility] [place] [phone] Performing Lab: [facility] DIVISION COMPREHE NSIVE METABOLI C PANEL GLOMERULAR FILTRATION RATE/1.73 SQ M.PREDICTE D [VOLUME RATE/AREA] IN SERUM, PLASMA OR BLOOD BY CREATININE -BASED FORMULA (CKD-EPI 2020) 83.83 60 12/05 Specimen Type: PLASMA Comment: No hemolysis noted. Ordering Provider: PAULINO HENDRICKS Report Released Date/Time: Dec 05, 2024 02:26 PM Reporting Lab: [facility] [place] [address] Performing Lab: [facility] DIVISION HGA1C HEMOGLOBIN A1C/HEMOGL OBIN.TOTAL IN BLOOD 5.5 4.0 - 6.0 12/05 Specimen Type: BLOOD No comment entered. Ordering Provider: PAULINO HENDRICKS Report Released Date/Time: Dec 05, 2024 02:26 PM Reporting Lab: [facility] [place] [address] Performing Lab: [facility] DIVISION LIPID PANEL (STL) CHOLESTERO L [MASS/VOLU ME] IN SERUM OR PLASMA 183 mg/dL 0 - 200 12/05 Specimen Type: PLASMA Comment: No hemolysis noted. Ordering Provider: PAULINO HENDRICKS Report Released Date/Time: Dec 05, 2024 02:26 PM Reporting Lab: [facility] [place] [address] Performing Lab: [facility] DIVISION LIPID PANEL (STL) TRIGLYCERI DE [MASS/VOLU ME] IN SERUM OR PLASMA 169 mg/dL 0 - 150 12/05 H Specimen Type: PLASMA Comment: No hemolysis noted. Ordering Provider: PAULINO HENDRICKS Report Released Date/Time: Dec 05, 2024 02:26 PM Reporting Lab: [facility] [place] [address] Performing Lab: [facility] LIPID PANEL (STL) CHOLESTERO L IN LDL [MASS/VOLU ME] IN SERUM OR PLASMA BY CALCULATIO N 112 mg/dL 12/05 Specimen Type: PLASMA Comment: No hemolysis noted. Ordering Provider: PAULINO HENDRICKS Report Released Date/Time: Dec 05, 2024 02:26 PM Reporting Lab: [facility] [place] [address] Performing Lab: [facility] [address] LIPID PANEL (STL) CHOLESTERO L IN HDL [MASS/VOLU ME] IN SERUM OR PLASMA 37 mg/dL 40 12/05 L Specimen Type: PLASMA Comment: No hemolysis noted. Ordering Provider: PAULINO HENDRICKS Report Released Date/Time: Dec 05, 2024 02:26 PM Reporting Lab: [facility] [place] [address] Performing Lab: [facility] [address] PROST. SPECIFIC AG.(PB-S TL) PROSTATE SPECIFIC AG [MASS/VOLU ME] IN SERUM OR PLASMA 0.873 ng/mL 0.000 - 4.000 12/05 Specimen Type: SERUM Comment: The listed sex of this patient may not be a typical indication for this test. Therefore, reference ranges or interpretiv e criteria listed may not be valid. Clinical correlation suggested. Ordering Provider: PAULINO HENDRICKS Report Released Date/Time: Dec 05, 2024 02:26 PM Reporting Lab: [facility] [place] [address] Performing Lab: [facility] [address] TSH (MA-PB) THYROTROPI N [UNITS/VOL UME] IN SERUM OR PLASMA 1.898 u[IU]/mL 0.470 - 5.000 12/05 Specimen Type: SERUM Comment: The listed sex of this patient may not be a typical indication for this test. Therefore, reference ranges or interpretiv e criteria listed may not be valid. Clinical correlation suggested. Ordering Provider: PAULINO HENDRICKS Report Released Date/Time: Dec 05, 2024 02:26 PM Reporting Lab: [facility] [place] [address] Performing Lab: [facility] [address] DIVISION URINALYS IS (STL-PB) COLOR OF URINE Colorles s 12/15 Specimen Type: URINE No comment entered. Ordering Provider: PAULINO HENDRICKS Report Released Date/Time: Dec 15, 2023 10:00 AM Reporting Lab: [facility] [place] [address] Performing Lab: [facility] DIVISION URINALYS IS (STL-PB) BILIRUBIN. TOTAL [PRESENCE] IN URINE BY TEST STRIP Negative mg/dL 12/15 Specimen Type: URINE No comment entered. Ordering Provider: PAULINO HENDRICKS Report Released Date/Time: Dec 15, 2023 10:00 AM Reporting Lab: [facility] [place] [address] Performing Lab: [facility] [address] URINALYS IS (STL-PB) PH OF URINE BY TEST STRIP 7.5 5.0 - 8.0 12/15 Specimen Type: URINE No comment entered. Ordering Provider: PAULINO HENDRICKS Report Released Date/Time: Dec 15, 2023 10:00 AM Reporting Lab: [facility] [place] [address] Performing Lab: [facility] DIVISION URINALYS IS (STL-PB) APPEARANCE OF URINE Clear 12/15 Specimen Type: URINE No comment entered. Ordering Provider: PAULINO HENDRICKS Report Released Date/Time: Dec 15, 2023 10:00 AM Reporting Lab: [facility] [place] [address] Performing Lab: [facility] [address] DIVISION URINALYS IS (STL-PB) NITRITE [PRESENCE] IN URINE BY TEST STRIP Negative mg/dL 12/15 Specimen Type: URINE No comment entered. Ordering Provider: PAULINO HENDRICKS Report Released Date/Time: Dec 15, 2023 10:00 AM Reporting Lab: [facility] [place] [address] Performing Lab: [facility] [address] DIVISION URINALYS IS (STL-PB) GLUCOSE [MASS/VOLU ME] IN URINE BY TEST STRIP Normalmg /dL 12/15 Specimen Type: URINE No comment entered. Ordering Provider: PAULINO HENDRICKS Report Released Date/Time: Dec 15, 2023 10:00 AM Reporting Lab: [facility] [place] [address] Performing Lab: [facility] [address] DIVISION URINALYS IS (STL-PB) PROTEIN [MASS/VOLU ME] IN URINE BY TEST STRIP Negative mg/dL - 20 12/15 Specimen Type: URINE No comment entered. Ordering Provider: PAULINO HENDRICKS Report Released Date/Time: Dec 15, 2023 10:00 AM Reporting Lab: [facility] [place] [address] Performing Lab: [facility] DIVISION URINALYS IS (STL-PB) URN.UROBIL INOGEN Normalmg /dL 12/15 Specimen Type: URINE No comment entered. Ordering Provider: PAULINO HENDRICKS Report Released Date/Time: Dec 15, 2023 10:00 AM Reporting Lab: [facility] [place] [address] Performing Lab: [facility] DIVISION URINALYS IS (STL-PB) HEMOGLOBIN [MASS/VOLU ME] IN URINE BY TEST STRIP Negative mg/dL 12/15 Specimen Type: URINE No comment entered. Ordering Provider: PAULINO HENDRICKS Report Released Date/Time: Dec 15, 2023 10:00 AM Reporting Lab: [facility] [place] [address] Performing Lab: [facility] DIVISION URINALYS IS (STL-PB) KETONES [MASS/VOLU ME] IN URINE BY TEST STRIP Negative mg/dL 12/15 Specimen Type: URINE No comment entered. Ordering Provider: PAULINO HENDRICKS Report Released Date/Time: Dec 15, 2023 10:00 AM Reporting Lab: [facility] [place] [address] Performing Lab: [facility] DIVISION URINALYS IS (STL-PB) URN.LEUK.E ST. Negative mg/dL 12/15 Specimen Type: URINE No comment entered. Ordering Provider: PAULINO HENDRICKS Report Released Date/Time: Dec 15, 2023 10:00 AM Reporting Lab: [facility] [place] [address] Performing Lab: [facility] DIVISION URINALYS IS (STL-PB) SPECIFIC GRAVITY OF URINE 1.009 1.005 - 1.029 12/15 Specimen Type: URINE No comment entered. Ordering Provider: PAULINO HENDRICKS Report Released Date/Time: Dec 15, 2023 10:00 AM Reporting Lab: [facility] [place] [address] Performing Lab: [facility] DIVISION LIPID PANEL (STL) CHOLESTERO L [MASS/VOLU ME] IN SERUM OR PLASMA 196 mg/dL 0 - 200 12/15 Specimen Type: PLASMA Comment: No hemolysis noted. Ordering Provider: PAULINO HENDRICKS Report Released Date/Time: Dec 15, 2023 10:00 AM Reporting Lab: [facility] [place] [address] Performing Lab: [facility] DIVISION LIPID PANEL (STL) TRIGLYCERI DE [MASS/VOLU ME] IN SERUM OR PLASMA 159 mg/dL 0 - 150 12/15 H Specimen Type: PLASMA Comment: No hemolysis noted. Ordering Provider: PAULINO HENDRICKS Report Released Date/Time: Dec 15, 2023 10:00 AM Reporting Lab: [facility] [place] [phone] Performing Lab: [facility] [id number] DIVISION LIPID PANEL (STL) CHOLESTERO L IN LDL [MASS/VOLU ME] IN SERUM OR PLASMA BY CALCULATIO N 120 mg/dL 12/15 Specimen Type: PLASMA Comment: No hemolysis noted. Ordering Provider: PAULINO HENDRICKS Report Released Date/Time: Dec 15, 2023 10:00 AM Reporting Lab: [facility] [place] [phone] Performing Lab: [facility] LIPID PANEL (STL) CHOLESTERO L IN HDL [MASS/VOLU ME] IN SERUM OR PLASMA 44 mg/dL 40 12/15 Specimen Type: PLASMA Comment: No hemolysis noted. Ordering Provider: PAULINO HENDRICKS Report Released Date/Time: Dec 15, 2023 10:00 AM Reporting Lab: [facility] [place] [address] Performing Lab: [facility] Vital Signs Combined list of inpatient and outpatient Vital Signs from Department of Defense and Veterans Affairs, ranging from 12 months to all on record, depending upon the facility. Vital Sign Value Date Comments Source SYSTOLIC BLOOD PRESSURE 131 04/04/2025 14:38:26 [facility] DIASTOLIC BLOOD PRESSURE 89 04/04/2025 14:38:26 [facility] PULSE OXIMETRY 96 04/04/2025 14:38:[address] [facility] WEIGHT 226.5 04/04/2025 14:38:26 [facility] BMI 29 kg/m2 04/04/2025 14:38:26 [facility] PAIN 4 04/04/2025 14:38:26 [facility] TEMPERATURE 97.9 04/04/2025 14:38:26 [facility] PULSE 89 04/04/2025 14:38:26 [facility] RESPIRATION 18 04/04/2025 14:38:26 [facility] SYSTOLIC BLOOD PRESSURE 148 12/05/2024 13:54:03 [facility] DIASTOLIC BLOOD PRESSURE 95 12/05/2024 13:54:03 [facility] PULSE OXIMETRY 99 12/05/2024 13:54:03 [facility] WEIGHT 232.1 12/05/2024 13:54:03 [facility] BMI 30 kg/m2 12/05/2024 13:54:03 [facility] PAIN 4 12/05/2024 13:54:03 [facility] TEMPERATURE 98.5 12/05/2024 13:54:03 [facility] PULSE 88 12/05/2024 13:54:03 [facility] RESPIRATION 18 12/05/2024 13:54:03 [facility] Encounters Combined list of: 1) Encounters from [facility] Affairs facilities going backup to the last 18 months, not all [place] inpatient encounters are included; 2) Encounters from the Department of [facility] facilities going backup to 280 months. 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 Outpatient Encounter [id number] MALINI RIOS 12/28 [facility] PSYTX W PT 30 MINUTES [id number] Diagnos is: ICD-10- CM F41.9 Anxiety disorde r, unspeci fied WILLIAN,CL ARIEL E 12/29 [facility] Outpatient Encounter [id number] KRISTEL KATE 01/02 [facility] OFFICE O/P NEW HI 60 MIN [id number] Diagnos is: ICD-10- CM Z77.29 Contact with and exposur e to other hazardo us substan LING Callejas 01/13 [facility] OFFICE O/P NEW MOD 45 MIN [id number] Diagnos is: ICD-10- CM K59.01 Slow transit constip ation PARRISH DING 01/16 [facility] TYMPANOMET RY & REFLEX THRESH [id number] Diagnos is: ICD-10- CM H90.3 Sensori neural hearing loss, LATRICE Zepeda E 02/28 [facility] OFFICE O/P EST MOD 30 MIN [id number] Diagnos is: ICD-10- CM K21.9 Gastro- esophag eal reflux disease without esophag itis DORY HENDRICKS 02/28 [facility] Outpatient Encounter [id number] 03/10 [facility] Outpatient Encounter [id number] 03/13 [facility] EGD BIOPSY SINGLE/MUL TIPLE [id number] Diagnos is: ICD-10- CM R14.0 Abdomin al distens ion (gaseou s) RAISA RYDER E 03/13 [facility] OFFICE O/P EST LOW 20 MIN [id number] Diagnos is: ICD-10- CM Z01.818 Encount er for other preproc edural examina tiEVERARDO Hussein P 03/13 [facility] Outpatient Encounter [id number] ROSALES SERNA 03/13 [facility] Outpatient Encounter [id number] LEYLA NICOLE 03/14 [facility] Outpatient Encounter [id number] 03/21 [facility] Outpatient Encounter [id number] 04/13 [facility] Outpatient Encounter [id number] 05/09 [facility] Outpatient Encounter [id number] 06/07 [facility] OFFICE O/P EST MOD 30 MIN [id number] Diagnos is: ICD-10- CM Z72.0 Tobacco use DORY HENDRICKS 12/05 [facility] Outpatient Encounter [id number] 12/05 [facility] Outpatient Encounter [id number] 12/20 [facility] SYNCH AUDIO-ONLY EST SF 10 [id number] Diagnos is: ICD-10- CM Z12.2 Encntr screen for maligna nt neoplas m of respira tory organs OHLMS,BAUTISTA Y 01/08 [facility] Outpatient Encounter [id number] ROZ OLIVER E 01/09 [facility] Outpatient Encounter [id number] CUAUHTEMOC WALSH 03/28 [facility] OFFICE O/P EST HI 40 MIN [id number] Diagnos is: ICD-10- CM F32.A Depress ion, unspeci fied HENDRICKSDORY 04/04 [facility] Social History Combined list of available smoking, tobacco, and other social history from Department of Defense and Veterans Affairs facilities. Social History Type Response Date Comment Sourc e Tobacco smoking status NHIS VA-TOBACCO USE EVERY DAY CIGARETTES 12/05/2024 [facility] History of tobacco use VA-TOBACCO USE EVERY DAY OTHER TYPE 12/05/2024 [facility] History of tobacco use AH-BPR SMOKING DEPLOYMENT YES 01/14/2024 [facility] History of tobacco use VA-TOBACCO USER EVERY DAY 12/15/2023 [facility] Plan of Care List of future care activities from [facility] facilities. Additional future care activities may be listed in the Assessment and Plan section. Date/Time Care Activity Care Activity Detail Facili ty 10/04/2025 AMBULATORY - MEDICINE AMBULATORY - MEDICI NE [facility]
--- NOTE | 2025-06-12 15:34 | ED.SKABFB ---
HPI - Skin/Abscess/Foreign Bdy General Chief complaint: Skin/Abscess/Foreign Body Stated complaint: Sores on head and L leg Time Seen by Provider: 06/12/25 15:34 Source: patient Mode of arrival: ambulatory Limitations: no limitations History of Present Illness HPI narrative: Ko is a 54-year-old male patient presenting to the clinic today with complaints in sores to his head and left leg x2 months. [place] the [place]. Has not tried any medications to treat his symptoms. Denies any fevers, chills, body aches. States the skin sores are irritating and mildly painful. Denies itching. Related Data Home Medications ?Medication ?Instructions ?Recorded ?Confirmed ?Last Taken ?Type bupropion HCl 150 mg 24 hr tablet, mg PO 06/12/25 Unknown History extended release tiotropium bromide 2.5 inhalation 06/12/25 Unknown History mcg/actuation mist for inhalation (Spiriva Respimat) Allergies Allergy/AdvReac Type Severity Reaction Status Date / Time No Known Allergies Allergy Verified 06/12/25 15:40 Review of Systems Review of Systems: Pertinent positives per HPI. Patient denies any fever, chills, rash, headache, visual changes, dizziness, cough, runny nose, sore throat, shortness of breath, chest pain, palpitations, nausea, vomiting, diarrhea, constipation, abdominal pain, or any urinary issues. [facility] Past Medical History Medical History Unspecified injury of femoral artery, right leg, sequela GERD (gastroesophageal reflux disease) Surgical History Surgical History Hx of appendectomy Hx of cholecystectomy Family History Family History Father FH: brain aneurysm Social History Social History Smoking packs per day: 1.5 Smoking cigarettes per day: 30.0 Years smoked: 20 Smoking pack-years: 30.00 Smoking status: Current every day smoker Tobacco type: cigarettes and smokeless tobacco Second hand tobacco smoke exposure: No Alcohol intake: current Drinks per week: 4 Substance use: never Substance use type: does not use Lack of Transportation: No Lack of Food: Never True Current Housing: I Have Housing Concerned About Future Housing: No Difficulty Paying Gas/Electric Bills: No Difficulty Paying for Meds: No Currently Unemployed: No Education: High School Diploma/GED Difficulty w/ Childcare or Family Care: No Living arrangements: with family Additional occupation/education comments: [employer] Gender identity (if verbalized by the patient): Male Spiritual care concerns: No Comments At the time of my signature, I reviewed and agree with the nursing past medical, surgical, social, and family history. There is no relevant family history pertinent to the patient complaint. Exam Narrative: General: Well-developed, well nourished, in no apparent distress Head: Normocephalic, atraumatic. Cardio: Regular rate and rhythm, s1 and s2 normal, no murmur appreciated. Resp: Clear to auscultation bilaterally, no rhonchi, rales, wheezing or rubs. Integumentary: [place], warm, and dry, multiple red, raised, mildly localized indurated skin sores to the left leg, left posterior neck, and top of the scalp Course Course Emergency Course: Portions of this record may have been created with voice recognition software. Level of Care: Express Care Visit Vital Signs Vital signs: Vital Signs Temperature 36.9 C 06/12/25 15:36 Pulse Rate 96 06/12/25 15:36 Respiratory Rate 20 06/12/25 15:36 Blood Pressure 143/93 H 06/12/25 15:36 Pulse Oximetry 100 06/12/25 15:36 Oxygen Delivery Room Air 06/12/25 15:36 Temperature 36.9 C 06/12/25 15:36 Pulse Rate 96 06/12/25 15:36 Respiratory Rate 20 06/12/25 15:36 Blood Pressure 143/93 H 06/12/25 15:36 Pulse Oximetry 100 06/12/25 15:36 Oxygen Delivery Room Air 06/12/25 15:36 Vital signs reviewed MDM - Skin/Abscess/Foreign Bdy MDM Narrative Medical decision making narrative: At the time of visit patient is resting comfortably on the exam table. Patient appears to be nontoxic. Complaints in sores to his head and left leg x2 months. He reports he has recently been out the country and developed a rash [place] he was [place] the country. Has not tried any medications to treat his symptoms. Denies any fevers, chills, body aches. States the skin sores are irritating and mildly painful. Denies itching. On exam patient has pustule lesion to the top of his head with knotted sores to the left posterior neck and to the localized redness around sores to they left leg-no cellulitis. Wound culture was ordered Labs: Wound culture from scalp pustule was obtained and sent to the lab. Plan: I suspect patient has a bacterial skin infection. Wound culture was obtained and sent to the lab. Supportive measures were discussed with the patient and they voiced understanding discharge instructions and agrees to treatment plan. Return precautions reviewed Differential Diagnosis Differential diagnosis: Likely abscess of skin or subcutaneous tissue, viral exanthem, dermatophytosis, urticaria, herpes zoster, allergic reaction to drug, cellulitis, eczema, insect bites, impetigo and contact dermatitis Discharge Plan Discharge Clinical Impression: Bacterial infection of skin Patient Disposition: Home Condition: Stable Instructions: Antibiotic Form, Abscess (ED) Additional Instructions: Wound culture was sent to the lab. Take Bactrim DS and mupirocin cream as directed Keep wound clean and dry Watch for signs and symptoms of infection- redness, streaking, swelling, purulent discharge, or increase in pain. 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 in 5-7 days if symptoms persist Patient Language: Belizean Prescriptions: New sulfamethoxazole-trimethoprim [Bactrim DS] 800-160 mg tablet 1 tablet PO Q12H 7 Days Qty: 14 0RF mupirocin [Centany] 2 % ointment 1 applic topical BID 7 Days Qty: 22 0RF No Action Spiriva Respimat 2.5 mcg/actuation mist INHALATION bupropion HCl 150 mg tablet extended release 24 hr PO tadalafil 20 mg tablet 20 mg PO DAILY PRN (Reason: sexual activity) Qty: 14 5RF Rx Instructions: administer approximately 30min before sexual activity; do not use more than 1 dose per 24hrs Follow-up/Referrals: UNKNOWN,DOCTOR [Non-Staff] Time of Disposition: 15:58 Quality NIHSS Nursing Documentation ED NIHSS nursing documentation: reviewed/agree
[2025-06-12 15:36] VITALS: BP 143/93; PULSE 96; RESP 20; TEMP 36.9; O2SAT 100
== END 2025-06-12 16:04 | disposition home or self-care (01) ==
PROVIDERS: Emergency Provider Nurse Practitioner Family
DX: L08.9 Local infection of the skin and subcutaneous tissue, unspecified (principal); B96.89 Other specified bacterial agents as the cause of diseases classified elsewhere; F17.210 Nicotine dependence, cigarettes, uncomplicated; F17.290 Nicotine dependence, other tobacco product, uncomplicated; K21.9 Gastro-esophageal reflux disease without esophagitis
CPT/HCPCS: 87070; 87075; 87205; 99213; G0463